=== PATIENT | female | born 1960 | race Caucasian/White ===

== ENCOUNTER 2018-04-15 17:12 | Emergency (ER) | payer OTHER, SELFPAY ==
[2018-04-15 17:13] VITALS: PULSE 81; RESP 18; TEMP 37; O2SAT 99; BMI 29.2
--- NOTE | 2018-04-15 17:15 | NURSING ---
NO OLD EKGS
[2018-04-15 17:29] VITALS: BP 203/105; PULSE 63; RESP 19; O2SAT 99
--- NOTE | 2018-04-15 17:29 | EKG12_ITS ---
Test Reason : CP Blood Pressure : / mmHG Vent. Rate : 082 BPM Atrial Rate : 082 BPM P-R Int : 148 ms QRS Dur : 084 ms QT Int : 388 ms P-R-T Axes : 043 -03 021 degrees QTc Int : 453 ms Normal sinus rhythm with sinus arrhythmia Normal ECG Confirmed by LUKAS SMITH, ELYSIA ([id number]), editor city NAHUM ALLEN ([id number]) on 04/17/2018 9:19:25 AM Referred By: JAMES Confirmed By:ELYSIA GAYTAN MD
[2018-04-15 17:47] LABS: Absolute Lymphocyte Count 2.67 X10^3/ul (0.83-4.51); Absolute Neutrophil Count 4.7 X10^3/uL (2.0-7.7); Basophil# 0.04 X10^3/uL; Basophil% 0.5 % (0-1); Eosinophil# 0.15 X10^3/uL; Eosinophils% 1.8 % (0-5); Hematocrit 44.5 % (37-47); Hemoglobin 14.7 g/dl (12.0-15.0); Lymphocyte # 2.67 X10^3/ul (4.0); Lymphocyte % 32.1 % (19-41); Mean Corpuscular Volume 96.9 fL (81-99); Mean Platelet Vol. 9.6 fl (6.2-12.0); Monocyte# 0.69 X10^3/uL; Monocyte% 8.3 % (0-10); Neutrophil # 4.73 X10^3/uL (2.7-7.7); Neutrophil % 56.9 % (47-70); Platelet Count 296 K/mm3 (150-450); RBC Distribution Width CV 13.2 % (11.6-14.6); RBC Distribution Width SD 45.7 fl (35.1-43.9); Red Blood Count 4.59 M/mm3 (4.2-5.4); White Blood Count 8.3 K/mm3 (4.4-11.0)
--- NOTE | 2018-04-15 17:48 | RAD_ITS ---
STUDY: X-RAY CHEST REASON FOR EXAM: Female, 57 years old. Chest pain. TECHNIQUE: Single AP portable view of the chest. COMPARISON: None. FINDINGS: The lungs are mildly hypoexpanded. There is no focal mass or infiltrate. There is no demonstrated pleural abnormality. Normal size heart. Normal mediastinum and wilman. Normal visualized pulmonary arteries. Normal visualized aortic arch and descending thoracic aorta. There is a levoscoliosis of the thoracic spine. There appears to be anterior fusion lower cervical spine. Normal visualized ribs, clavicles, and shoulders. There is no demonstrated abnormality of the visualized soft tissue structures of the upper abdomen. RAD/Chest 1 View (Portable) IMPRESSION: No acute cardiopulmonary disease. Electronically Signed: Cristobal Carrillo DO at 18:22 EST Tel [phone], Service support ,
[2018-04-15 17:57] LABS: POSITIVE COUNT NO; POSITIVE DIFFERENTIAL NO; POSITIVE MORPHOLOGY NO
[2018-04-15 18:02] LABS: Anion Gap 7 (5-15); BUN 17 mg/dL (7-18); BUN/Creat Ratio 17.5 RATIO (10-20); Chloride 105 mmol/L (98-107); Creatinine, Serum 0.97 mg/dL (0.55-1.02); EST Glomerular Filtration Rate 63 mL/min (>60); Est Glom Filt Rate - Afr Amer 76 mL/min (>60); Estimated Creatinine Clearance 56.59 ml/min; Glucose 96 mg/dL (74-106); Potassium 3.8 mmol/L (3.5-5.1); Sodium Level 138 mmol/L (136-145)
[2018-04-15 18:13] VITALS: PULSE 61; RESP 13; O2SAT 96
[2018-04-15 18:20] LABS: International Normalized Ratio 0.9; Prothrombin Time (Protime)PT. 11.7 SECONDS (11.7-14.9)
[2018-04-15 18:35] VITALS: BP 165/88; PULSE 59; RESP 18; O2SAT 99
[2018-04-15] MEDS: Mag Hydrox/Al Hydrox/Simeth 30 ML UDC PO (18:35)
--- NOTE | 2018-04-15 18:42 | ED.VISSUMM ---
- ER Visit Summary Date of Service: 04/15/18 Chief Complaint: Chest pain History of Present Illness: The patient is a 57 F with no primary care physician. She reports she has chest pain that began approximately 2 months ago. States this is an intermittent pain that seems to be brought on by eating and relieved by antacids. She reports that the episode she is currently experiencing began approximately 7 hours ago. Some intermittent pressure that lasts minutes at a time. States that it is 2 out of 10 currently and 6 out of 10 at worst. She reports is been constant for the past 7 hours today and that is what is different than usual. It was not rate relieved by antacids today. It is relieved by walking. She denies any associated nausea, vomiting, diaphoresis, shortness of breath. Physical Examination: Vitals: Stable. Afebrile. General: Well-nourished and well-developed. Head: Normocephalic atraumatic. Neck: Supple, no lymphadenopathy. No JVD. Nontender. Cardiovascular: Regular rate and rhythm. No murmurs. Respiratory: No respiratory distress. Clear to auscultation bilaterally. Abdominal: Soft, nontender, nondistended, normal bowel sounds. No guarding, rebound, or peritoneal signs. Back: Nontender. Extremities: Nontender, no edema. Skin: Normal color, no rash. Neurologic: Alert and oriented ?3. Cranial nerves II through XII are intact. Normal strength and sensation. Psych: Normal affect. Test Results: EKG is sinus at [address] changes. There is no old EKG for comparison. Troponin is negative despite greater than 7 hours of constant pain. INR 0.9. Chem-7 is normal. CBC is normal. Chest x-ray is normal. Emergency Department Course and Treatment: Patient was given GI cocktail and is gotten significant relief. Her blood pressure has remained elevated while here. She was given lisinopril p.o. Treatment Plan: Patient be discharged on Zantac and lisinopril. Instructed for Dr. Avi Wagoner soon as possible. Return to the emergency department for any worsening symptoms. Disposition: To home in improved and stable condition. Impression: 1. Atypical chest pain. 2. Hypertension. 3. HELADIO score of 0. This note was generated with [employer] software. It may contain incorrect words, spelling, and punctuation that were not noted in review of the chart prior to signing ED Disposition - Plan for ED Patient: Disposition: Home or Assisted Living Chief Complaint: Chest Pain Instructions: ED Chest Pain Atypical Unkn Cause Prescriptions: Lisinopril [Zestril] 10 mg PO DAILY #30 tablet Ranitidine [Zantac] 300 mg PO DAILY #30 tablet Referrals: Avi Wagoner MD [STAFF PHYSICIAN] - As soon as possible
[2018-04-15 19:15] VITALS: BP 162/76; PULSE 80; RESP 18; O2SAT 98
[2018-04-15] MEDS: Famotidine 20 MG Tablet 40 MG PO (19:15)
[2018-04-15] MEDS: Lisinopril 10 MG Tablet PO (19:15)
--- OUTSIDE RECORDS SUMMARY | 2018-06-01 22:31 | XMS RPT_ITS ---
:1960 Author Organization [facility] Care Team Providers Name Role Phone OLDER, ADRY (DAMPER WORKER) Attending Unavailable OLDER, ADRY (DAMPER WORKER) Referring Unavailable OLDER, ADRY (DAMPER WORKER) Referring Unavailable OLDER, ADRY (DAMPER WORKER) Referring Unavailable OLDER, ADRY (DAMPER WORKER) Attending Unavailable OLDER, ADRY (DAMPER WORKER) Referring Unavailable OLDER, ADRY (DAMPER WORKER) Attending Unavailable OLDER, ADRY (DAMPER WORKER) Referring Unavailable SILVA CARBAJAL Attending Unavailable LINDA BELL Referring Unavailable LINDA BELL Referring Unavailable Harvey Truong Attending Unavailable Primay Care Physicia, No Primary Care Unavailable PROBLEMS PROBLEMS DATE TYPE CONDITION / CODE ATTENDING STATUS SOURCE 01/23/2018 Active Hematuria, NA Active [facility] unspecified / [place] R31.9(ICD-10) Repository 01/22/2018 Active Elevated NA Active [facility] blood-pressure [place] reading, without Repository diagnosis of hypertension / R03.0(ICD-10) PROCEDURES PROCEDURES No Procedure Records FoundRESULTS RESULTS CNCO Observed: 05/19/2018 Status: COMPLETED Source: [place] 8:27 AM CLINIC MAIN [facility] REPOSITORY HNO ID: [id number] Author: Mammography Coordinator Service: (none) Author Type: Physician Type: Letter Filed: 05/20/2018 11:31 PM Note Text: May 19, 2018 PID: [id number] Eva Valenzuela [address] [place] [address] Dear Ms. Valenzuela, We are pleased to inform you that the results of your recent breast imaging exam on 05/18/2018 are normal. Early detection of cancer is very important. We also understand recommendations regarding breast cancer screening are controversial. Please discuss with your primary care provider which strategy is best for you and whether a mammogram is right for you. Your imaging studies and report will be kept on file at [facility] as part of your permanent medical record and are available for your continuing care. Thank you for allowing us to help in meeting your health care needs. Sincerely, Dr. Yoon Interpreting Radiologist [facility] (Normal over 40) IRAM SCREENING W ROQUE Observed: 05/18/2018 Status: F Source: [place] 4:09 PM [facility] [place] REPOSITORY * * *Final Report* * * DATE OF EXAM: May 18 2018 4:09PM [id number] - IRAM SCREENING W ROQUE / PROCEDURE REASON: screening mammogram * * * * Physician Interpretation * * * * RESULT: #[id number] - IRAM SCREENING [place] BILATERAL DIGITAL SCREENING MAMMOGRAM TOMOSYNTHESIS WITH CAD: 05/18/2018 HISTORY: Screening Mammogram - patient reports NO breast symptoms /Waiting for [facility] to digitize previous. RESULT: TECHNIQUE: The study was acquired using full field digital technology and interpreted from soft copy. Digital Breast Tomosynthesis (DBT) images were obtained and used to assist in the interpretation of this examination. Current study was also evaluated with a Computer Aided Detection (CAD). Comparison is made to exam dated: 03/07/2011 mammogram - [facility]. There are scattered fibroglandular elements in both breasts. There is a biopsy clip in the left breast. No significant masses, calcifications, or other findings are seen in either breast. There has been no significant interval change. IMPRESSION: There is no mammographic evidence of malignancy. A 1 year screening mammogram is recommended. Shima willams/penrad:05/19/2018 08:27:42 Production Manager(s): Karlie Schulte RT(R)(M), [facility] letter sent: Normal over 40 Mammogram BI-RADS: 1 Negative Multiple national specialty organizations have released breast cancer screening guidelines for women at average risk for developing breast cancer - guidelines that are based on both evidence and opinion, yet differ on when to start and how often to screen for breast cancer. With representation from Breast Imaging, Internal Medicine, Women's Health, Family Medicine, and Medical/Surgical Oncology, the [facility] has carefully reviewed the data and reached the following consensus: 1) All women should engage in shared decision-making with their providers to decide when to start and how often to screen; 2) All women should have the opportunity to start screening mammography at age 40; 3) For women ages 45-55, we recommend annual screening mammograms; 4) For women ages 55 and over, we support both the transition from an annual to a biennial interval if this aligns more with patient's values and preferences, or continuation with annual screening; 5) All women should discuss with their providers when to stop screening mammograms. Video Game Programmer: David Transcribe Date/Time: May 18 2018 3:08P Dictated by: SHIMA YOON MD This examination was interpreted and the report reviewed and electronically signed by: SHIMA YOON MD on May 19 2018 8:27AM EST [id number] Observed: 05/18/2018 Status: COMPLETED Source: [place] 3:28 PM [facility] [place] REPOSITORY HNO ID: [id number] Author: Domonique Steward Service: (none) Author Type: (none) Type: Progress Notes Filed: 05/18/2018 3:29 PM Note Text: Radiology Service Progress Note PATIENT NAME: Eva Valenzuela DATE OF SERVICE: May 18, 2018 TIME: 3:29 PM PATIENT IDENTITY VERIFICATION COMPLETED USING TWO (2) METHODS: Patient confirmed name verbally and Date of . PATIENT GENDER DATA: Female. status: : No status: NO. PATIENT RELEVANT IMPLANT DATA REVIEWED: Not Applicable RADIOLOGY DEPARTMENT: [facility] IV DATA: Not applicable SIGNED BY: Domonique Steward May 18, 2018 3:29 PM PROGRESS Observed: 05/14/2018 Status: COMPLETED Source: [place] 3:15 PM [facility] [place] REPOSITORY HNO ID: [id number] Author: Silva Carbajal Service: (none) Author Type: Physician Type: Progress Notes Filed: 05/15/2018 6:41 PM Note Text: Eva Valenzuela 1960 REFERRING PHYSICIAN: Linda Bell, * CHIEF COMPLAINT: Consult (Consult Colonoscopy) HPI: The patient is a 58 year old female presents for consideration of colonoscopy for screening for colon cancer. Denies previous colonoscopy. Denies colon cancer in family. Denies changes in bowel habits. Denies blood in stools.. Recently quit TOB use PAST MEDICAL HISTORY Diagnosis Date - Dysmenorrhea - Excessive or frequent menstruation Heavy periods - Irregular menstrual cycle Irregular periods Hypertension PAST SURGICAL HISTORY Procedure Laterality Date - ARTHROTOMY,OPEN REPAIR MENISCUS Open knee reconstruction - LAPAROSCOPY, SURGICAL; WITH VAGINAL 2012 LAVH, adenomyosis, fibroids - LIGATE FALLOPIAN TUBE Tubal ligation - NOVASURE 08/06/2010 hysteroscopy/curettage - PAST SURGICAL HISTORY OF disc fusion PAST INJURIES Denies head injuries, denies history of fractures Current Outpatient Prescriptions: lisinopril (ZESTRIL, PRINIVIL) 10 mg tablet Take 10 mg by mouth once daily. Ranitidine HCl (ZANTAC) 300 mg tablet Take 300 mg by mouth daily at bedtime. sod picosulf-mag ox-citric ac (CLENPIQ) 10 mg-3.5 gram -12 gram/160 mL soln Use as instructed. ALLERGIES: Patient has no known allergies. PERSONAL HISTORY: Social History Marital status: Spouse name: Maximus Years of education: Number of children: 2 Occupational History Occupation Employer Comment [employer] Social History Main Topics Smoking status: Former Smoker Packs/day: 0.30 Years: 25.00 Types: Cigarettes Quit date: 05/11/2018 Smokeless tobacco: Never Used Alcohol use: Yes Comment: occasional Drug use: No Sexual activity: Yes Partners with: Male control/protection: Tubal Ligation FAMILY HISTORY Problem Relation Age of Onset - Hypertension Mother - Hypertension Sister REVIEW OF SYSTEMS: General - denies fevers Cardiovascular - denies chest pain, denies history of [place] Pulmonary - denies shortness of breath, denies coughing up blood Gastrointestinal - has acid reflux symptoms, denies abdominal pain, denies blood in stools, denies changes in bowel habits Neurological - denies seizures, denies history of CVA Genitourinary - denies burning with urination, denies blood in urine Hematological - denies spontaneous/prolonged bleeding Skin - denies nonhealing skin wounds Musculoskeletal - denies chronic joint/back pain Endocrine - denies diabetes Psychological ? denies hallucinations PHYSICAL EXAMINATION: General: The patient is 58 year old female, well nourished, well hydrated in no acute distress. The patient is oriented to time, place, and person. VITALS: Blood pressure 158/62, pulse 107, temperature 36.6 ?C (97.9 ?F), temperature source Temporal Artery, height 165.1 cm (5' 5), weight 77.5 kg (170 lb 12.8 oz), last menstrual period 05/25/2011, SpO2 98 %. Body mass index is 28.42 kg/m?. Head ? Normocephalic. EOM intact with sclera clear and no icterus noted. Mouth with mucus membranes moist. Neck - supple with no jugular venous distention noted. Trachea is midline. Lungs ? clear to auscultation. Normal breath sounds. No rales/rhonchi/wheezing noted. No labored breathing noted, such as retractions. No cough heard. Heart ? normal S1 and S2 auscultated. No rubs/clicks/murmurs noted. Regular rate. Abdomen ? soft and benign. Normal bowel sounds. Extremities ? no pitting edema noted Skin ? normal skin integrity. Neurological ? gait normal, no focal deficits noted Psych ? calm and appropriate Assessment IMPRESSION: screening for colon cancer PLAN: I have discussed the above with the patient. I have offered colonoscopy , possible biopsies I have explained the procedure to the patient. I have counseled the patient as to the risks of the procedure, including but not limited to: infection, bleeding, injury to any intraabdominal organs such as liver/spleen, perforation of the GI tract, inability to complete the procedure, complications of anesthesia, etc. ? the patient understands. The patient wishes to proceed. Will plan on moderate IV sedation for colonoscopy in the ambulatory endoscopy clinic. Colon cleansing preparation prescribed and explained to patient. I have answered all questions to the patient?s satisfaction and the patient has no further questions. . Diagnoses: (Z12.11) Screening for colon cancer (primary encounter diagnosis) Return to Clinic: The patient is instructed to follow-up with me after the procedure as per needed. Silva Carbajal MD CNOV Observed: 05/14/2018 Status: COMPLETED Source: [place] 2:20 PM [facility] REPOSITORY Office Visit (GENSWS) EVA VALENZUELA ([id number]) 1960 F Date Time Provider Department 05/14/18 2:20 PM SILVA CARBAJAL During your visit today, we recorded the following information about you: Temperature Pulse Blood pressure Weight 97.9 degrees 107/minute 158/62 77.5 kg Height 1.651 m Silva Carbajal MD 05/14/2018 2:34 PM Signed How to Prepare for Your Colonoscopy Using Golytely, Nulytely, Trilyte or Colyte Preparations with Conscious Sedation IMPORTANT - Read These Instructions at Least 2 Weeks Before your Colonoscopy Dow Instructions: ? Your bowel must be empty so that your doctor can clearly view your colon. Follow all of the instructions in this handout EXACTLY as they are written. If you do NOT follow the directions for when to start drinking the bowel preparation, your colonoscopy WILL be cancelled. ? Do NOT eat any solid food the ENTIRE day before your colonoscopy. ? Buy your bowel preparation at least 5 days before your colonoscopy. ? Do NOT mix the solution until the day before your colonoscopy. Designated Emergency Medicine Medical Director on the Day of Your Exam A responsible family member or friend MUST come with you to your colonoscopy and REMAIN in the endoscopy area until you are discharged. You are NOT ALLOWED to drive, take a taxi or bus, or leave the Endoscopy Center ALONE. If you do not have a responsible minibus driver (family member or friend) with you to take you home, you exam cannot be done with sedation and will be cancelled. Medications Some of the medications you take may need to be stopped or adjusted before your colonoscopy. You MUST call the doctor who ordered any of the following medicines at least 2 weeks before your colonoscopy. ? Blood thinners - such as Coumadin (warfarin), Plavix (clopidogrel), Ticlid (ticlopidine hydrochloride), Agrylin (anagrelide), Xarelto (Rivaroxaban), Pradaxa (Dabigatran), Eliquis (Apixaban), and Effient (Prasugrel). ? Insulin or diabetes pills. Please call the doctor that monitors your glucose levels. Your insulin dosage may need to be adjusted due to the diet restrictions required with this bowel preparation. (Please bring your diabetes medicines with you on the day of your procedure.) If you take aspirin, take it and ALL other medications prescribed by your doctor. On the day of your colonoscopy, take your medications with a sip of water. Five (5) Days Before Your Colonoscopy ? Do NOT take medicines that stop diarrhea - such as Imodium, Kaopectate, or Pepto Bismol. ? Do NOT take fiber supplements - such as Metamucil, Citrucel, or Perdiem. ? Do NOT take products that contain iron - such as multi-vitamins (the label lists what is in the products). ? Do NOT take Vitamin E. Buy the prescription bowel preparation solution at your local pharmacy or drugstore pharmacy. Three (3) Days Before Your Colonoscopy ? Do NOT eat high-fiber foods - such as popcorn, beans, seeds (flax, sunflower, quinoa), multigrain bread, nuts, salad/vegetables, or fresh and dried fruit. One (1) Day Before Your Colonoscopy Only drink clear liquids the ENTIRE DAY before your colonoscopy. Do NOT eat any solid foods. Drink at least 8 ounces of clear liquids every hour after waking up. The clear liquids you can drink include: ? Water, apple, or white grape juice; broth; coffee or tea (without milk or creamer); clear carbonated beverages such as jared alma or lemon-savoonga soda; Gatorade or other sports drinks (not red); Johan-Aid or other flavored drinks (not red). You may eat plain jello or other gelatins (not red) or popsicles (not red). Do NOT drink alcohol on the day before or the day of the procedure. When to Mix and Drink Your Bowel Prep Follow the instructions on the label. After mixing, place the solution in the refrigerator for a couple of hours before drinking. You may add the flavor pack that came with the bowel preparation. Do NOT add ice, sugar or any flavorings to the solution. Morning Appointment (Before 12 noon) Step 1: ? Start drinking the bowel preparation at 6 PM the evening before your colonoscopy. Drink an 8-oz glass of bowel preparation every 10 minutes for a total of 8 glasses. ? You may continue to drink clear liquids until bedtime. Step 2: The day of the colonoscopy (4 hours before your exam). ? Drink an 8-oz glass of bowel preparation every 10 minutes for a total of 8 glasses. ? You may continue to drink clear liquids up to 2 hours before your exam. If you take aspirin, take it and ALL other prescribed medicines with a sip of water on the day of your colonoscopy. Afternoon Appointment (After 12 noon) ? Start drinking the bowel preparation at 6 AM the day of your colonoscopy. Drink an 8-oz glass of bowel preparation every 10 minutes. You must finish drinking the solution by 9 AM. ? You may continue to drink clear liquids up to 2 hours before your exam. If you take aspirin, take it and ALL other prescribed medicines with a sip of water on the day of your colonoscopy. Silva Carbajal MD 05/15/2018 6:41 PM Signed Eva Valenzuela 1960 REFERRING PHYSICIAN: Linda Bell, * CHIEF COMPLAINT: Consult (Consult Colonoscopy) HPI: The patient is a 58 year old female presents for consideration of colonoscopy for screening for colon cancer. Denies previous colonoscopy. Denies colon cancer in family. Denies changes in bowel habits. Denies blood in stools.. Recently quit TOB use PAST MEDICAL HISTORY Diagnosis Date - Dysmenorrhea - Excessive or frequent menstruation Heavy periods - Irregular menstrual cycle Irregular periods Hypertension PAST SURGICAL HISTORY Procedure Laterality Date - ARTHROTOMY,OPEN REPAIR MENISCUS Open knee reconstruction - LAPAROSCOPY, SURGICAL; WITH VAGINAL 2012 LAVH, adenomyosis, fibroids - LIGATE FALLOPIAN TUBE Tubal ligation - NOVASURE 08/06/2010 hysteroscopy/curettage - PAST SURGICAL HISTORY OF disc fusion PAST INJURIES Denies head injuries, denies history of fractures Current Outpatient Prescriptions: lisinopril (ZESTRIL, PRINIVIL) 10 mg tablet Take 10 mg by mouth once daily. Ranitidine HCl (ZANTAC) 300 mg tablet Take 300 mg by mouth daily at bedtime. sod picosulf-mag ox-citric ac (CLENPIQ) 10 mg-3.5 gram -12 gram/160 mL soln Use as instructed. ALLERGIES: Patient has no known allergies. PERSONAL HISTORY: Social History Marital status: Spouse name: Maximus Years of education: Number of children: 2 Occupational History Occupation Employer Comment [employer]* Social History Main Topics Smoking status: Former Smoker Packs/day: 0.30 Years: 25.00 Types: Cigarettes Quit date: 05/11/2018 Smokeless tobacco: Never Used Alcohol use: Yes Comment: occasional Drug use: No Sexual activity: Yes Partners with: Male control/protection: Tubal Ligation FAMILY HISTORY Problem Relation Age of Onset - Hypertension Mother - Hypertension Sister REVIEW OF SYSTEMS: General - denies fevers Cardiovascular - denies chest pain, denies history of [place] Pulmonary - denies shortness of breath, denies coughing up blood Gastrointestinal - has acid reflux symptoms, denies abdominal pain, denies blood in stools, denies changes in bowel habits Neurological - denies seizures, denies history of CVA Genitourinary - denies burning with urination, denies blood in urine Hematological - denies spontaneous/prolonged bleeding Skin - denies nonhealing skin wounds Musculoskeletal - denies chronic joint/back pain Endocrine - denies diabetes Psychological ? denies hallucinations PHYSICAL EXAMINATION: General: The patient is 58 year old female, well nourished, well hydrated in no acute distress. The patient is oriented to time, place, and person. VITALS: Blood pressure 158/62, pulse 107, temperature 36.6 ?C (97.9 ?F), temperature source Temporal Artery, height 165.1 cm (5' 5), weight 77.5 kg (170 lb 12.8 oz), last menstrual period 05/25/2011, SpO2 98 %. Body mass index is 28.42 kg/m?. Head ? Normocephalic. EOM intact with sclera clear and no icterus noted. Mouth with mucus membranes moist. Neck - supple with no jugular venous distention noted. Trachea is midline. Lungs ? clear to auscultation. Normal breath sounds. No rales/rhonchi/wheezing noted. No labored breathing noted, such as retractions. No cough heard. Heart ? normal S1 and S2 auscultated. No rubs/clicks/murmurs noted. Regular rate. Abdomen ? soft and benign. Normal bowel sounds. Extremities ? no pitting edema noted Skin ? normal skin integrity. Neurological ? gait normal, no focal deficits noted Psych ? calm and appropriate Assessment IMPRESSION: screening for colon cancer PLAN: I have discussed the above with the patient. I have offered colonoscopy , possible biopsies I have explained the procedure to the patient. I have counseled the patient as to the risks of the procedure, including but not limited to: infection, bleeding, injury to any intraabdominal organs such as liver/spleen, perforation of the GI tract, inability to complete the procedure, complications of anesthesia, etc. ? the patient understands. The patient wishes to proceed. Will plan on moderate IV sedation for colonoscopy in the ambulatory endoscopy clinic. Colon cleansing preparation prescribed and explained to patient. I have answered all questions to the patient?s satisfaction and the patient has no further questions. . Diagnoses: (Z12.11) Screening for colon cancer (primary encounter diagnosis) Return to Clinic: The patient is instructed to follow-up with me after the procedure as per needed. Silva Carbajal MD Referring Provider: LINDA BELL [[id number]] Allergies As of Date: 05/14/2018 (No Known Allergies) Date Reviewed: 05/14/2018 Reviewed by: Silva Carbajal - Fully Assessed Reason for Visit: Consult [[id number]] Cmt: Consult Colonoscopy Primary Visit Diagnosis:Screening for colon cancer [Z12.11] Order(s):[facility] PT ED DIGESTIVE DISEASES [] Order #: [id number]: 1 sod picosulf-mag ox-citric ac (CLENPIQ) 10 mg-3.5 gram -12 gram/160 mL solnUse as instructed.Disp: 1 BoxRfl: 0 COLONOSCOPY SCRN NOT HIGH RISK [[id number]] Order #: [id number] [facility] PAULO PT ED DIGESTIVE DISEASES [] Order #: [id number]. #:[id number]: 1 Prescriptions as of 05/14/2018 Sig: LISINOPRIL 10 MG TABLET Take 10 mg by mouth once lee* RANITIDINE 300 MG TABLET Take 300 mg by mouth daily at* SOD PICOSULF 10 MG-MAGNES 3.5* Use as instructed. Problem List As Of Date 05/14/2018 Noted Resolved Excessive or frequent menstruation [N92.0] INVALID FOR*07/16/2011 Dysmenorrhea [N94.6] INVALID FOR*07/16/2011 Metrorrhagia [N92.1] INVALID FOR*07/16/2011 Fibroid [D21.9] INVALID FOR*07/16/2011 Elevated blood pressure reading without diagnos*INVALID FOR* Tobacco use [Z72.0] INVALID FOR* Other instructions from your clinician: How to Prepare for Your Colonoscopy Using Golytely, Nulytely, Trilyte or Colyte Preparations with Conscious Sedation IMPORTANT - Read These Instructions at Least 2 Weeks Before your Colonoscopy Dow Instructions: ? Your bowel must be empty so that your doctor can clearly view your colon. Follow all of the instructions in this handout EXACTLY as they are written. If you do NOT follow the directions for when to start drinking the bowel preparation, your colonoscopy WILL be cancelled. ? Do NOT eat any solid food the ENTIRE day before your colonoscopy. ? Buy your bowel preparation at least 5 days before your colonoscopy. ? Do NOT mix the solution until the day before your colonoscopy. Designated Emergency Medicine Medical Director on the Day of Your Exam A responsible family member or friend MUST come with you to your colonoscopy and REMAIN in the endoscopy area until you are discharged. You are NOT ALLOWED to drive, take a taxi or bus, or leave the Endoscopy Center ALONE. If you do not have a responsible minibus driver (family member or friend) with you to take you home, you exam cannot be done with sedation and will be cancelled. Medications Some of the medications you take may need to be stopped or adjusted before your colonoscopy. You MUST call the doctor who ordered any of the following medicines at least 2 weeks before your colonoscopy. ? Blood thinners - such as Coumadin (warfarin), Plavix (clopidogrel), Ticlid (ticlopidine hydrochloride), Agrylin (anagrelide), Xarelto (Rivaroxaban), Pradaxa (Dabigatran), Eliquis (Apixaban), and Effient (Prasugrel). ? Insulin or diabetes pills. Please call the doctor that monitors your glucose levels. Your insulin dosage may need to be adjusted due to the diet restrictions required with this bowel preparation. (Please bring your diabetes medicines with you on the day of your procedure.) If you take aspirin, take it and ALL other medications prescribed by your doctor. On the day of your colonoscopy, take your medications with a sip of water. Five (5) Days Before Your Colonoscopy ? Do NOT take medicines that stop diarrhea - such as Imodium, Kaopectate, or Pepto Bismol. ? Do NOT take fiber supplements - such as Metamucil, Citrucel, or Perdiem. ? Do NOT take products that contain iron - such as multi- vitamins (the label lists what is in the products). ? Do NOT take Vitamin E. Buy the prescription bowel preparation solution at your local pharmacy or [facility]. Three (3) Days Before Your Colonoscopy ? Do NOT eat high-fiber foods - such as popcorn, beans, seeds (flax, sunflower, quinoa), multigrain bread, nuts, salad/vegetables, or fresh and dried fruit. One (1) Day Before Your Colonoscopy Only drink clear liquids the ENTIRE DAY before your colonoscopy. Do NOT eat any solid foods. Drink at least 8 ounces of clear liquids every hour after waking up. The clear liquids you can drink include: ? Water, apple, or white grape juice; broth; coffee or tea (without milk or creamer); clear carbonated beverages such as jared alma or lemon-savoonga soda; Gatorade or other sports drinks (not red); Johan- Aid or other flavored drinks (not red). You may eat plain jello or other gelatins (not red) or popsicles (not red). Do NOT drink alcohol on the day before or the day of the procedure. When to Mix and Drink Your Bowel Prep Follow the instructions on the label. After mixing, place the solution in the refrigerator for a couple of hours before drinking. You may add the flavor pack that came with the bowel preparation. Do NOT add ice, sugar or any flavorings to the solution. Morning Appointment (Before 12 noon) Step 1: ? Start drinking the bowel preparation at 6 PM the evening before your colonoscopy. Drink an 8-oz glass of bowel preparation every 10 minutes for a total of 8 glasses. ? You may continue to drink clear liquids until bedtime. Step 2: The day of the colonoscopy (4 hours before your exam). ? Drink an 8-oz glass of bowel preparation every 10 minutes for a total of 8 glasses. ? You may continue to drink clear liquids up to 2 hours before your exam. If you take aspirin, take it and ALL other prescribed medicines with a sip of water on the day of your colonoscopy. Afternoon Appointment (After 12 noon) ? Start drinking the bowel preparation at 6 AM the day of your colonoscopy. Drink an 8-oz glass of bowel preparation every 10 minutes. You must finish drinking the solution by 9 AM. ? You may continue to drink clear liquids up to 2 hours before your exam. If you take aspirin, take it and ALL other prescribed medicines with a sip of water on the day of your colonoscopy. Prescriptions ordered this encounter Disp Refills Start End SOD PICOSULF 10 MG-MAGNES 3.5 GRAM-C* 1 Box 0 05/14/2018 Sig: Use as instructed. Letter Text Encounter Status:Closed by MD SILVA CARBAJAL on 05/15/18 KIMBERLYN Observed: 05/08/2018 Status: COMPLETED Source: [place] 12:00 AM [facility] REPOSITORY Telephone ([email or web address]) EVA VALENZUELA ([id number]) 1960 F Date Time Provider Department 05/08/18 RIK LÓPEZ Dasher During your visit today, we recorded the following information about you: Ashlyn Díaz 05/08/2018 4:00 PM Signed 1st attempt to reach patient to schedule colon consult.Ashlyn Prado Psr Aaliyah Almanza 05/13/2018 10:27 AM Signed Scheduled patient for colonoscopy consultation with dr. Carbajal on 05/14/2018 Aaliyah Almanza Allergies As of Date: 05/08/2018 (No Known Allergies) Date Reviewed: 03/05/2018 Reviewed by: Patience Roldan LPN - Fully Assessed Reason for Visit: LMTCB [1226] Problem List As Of Date 05/08/2018 Noted Resolved Excessive or frequent menstruation [N92.0] INVALID FOR*07/16/2011 Dysmenorrhea [N94.6] INVALID FOR*07/16/2011 Metrorrhagia [N92.1] INVALID FOR*07/16/2011 Fibroid [D21.9] INVALID FOR*07/16/2011 Elevated blood pressure reading without diagnos*INVALID FOR* Tobacco use [Z72.0] INVALID FOR* Encounter Status:Closed by ASHLYN MOYER on 05/08/18 12 LEAD ELECTROCARDIOGRAM Observed: 04/17/2018 Status: F Source: [place] 9:20 AM [facility] Cardiovascular Services [address] [place] [address] 12 Lead EKG 04/15/18 1718 MR#: [id number] Acct: [id number] Name: EVA VALENZUELA YISEL Rep #: [id number] : 1960 57 From: Micky Connors MD Attending Dr: Status: DEP ER Ordering Dr: Provider,Ed P. Date: 04/15/18 Location: ED Sex: F C Admitted: Test Reason : CP Blood Pressure : / mmHG Vent. Rate : 082 BPM Atrial Rate : 082 BPM P-R Int : 148 ms QRS Dur : 084 ms QT Int : 388 ms P-R-T Axes : 043 -03 021 degrees QTc Int : 453 ms Normal sinus rhythm with sinus arrhythmia Normal ECG Confirmed by LUKAS SMITH, MICKY ([id number]), brands editor NAHUM ALLEN ([id number]) on 04/17/2018 9:19:25 AM Referred By: JAMES Confirmed By:MICKY CONNORS MD 04/17/18918 Date Micky Connors MD CC: No Primary Care Physician; ED PHYSICIAN PROVIDER; Harvey Truong MD Signed EMERGENCY DEPARTMENT Observed: 04/16/2018 Status: F Source: [place] SUMMARY 1:05 AM [facility] Medical Records Department [address] [place] [address] Emergency Department Summary 04/15/18 1842 MR#: [id number] Acct: [id number] Name: BIANCAEVA YISEL Rep #: [id number] : 1960 57 From: Harvey Truong MD PCP: Care Physician, No Primary Status: DEP ER - ER Visit Summary Date of Service: 04/15/18 Chief Complaint: Chest pain History of Present Illness: The patient is a 57 F with no primary care physician. She reports she has chest pain that began approximately 2 months ago. States this is an intermittent pain that seems to be brought on by eating and relieved by antacids. She reports that the episode she is currently experiencing began approximately 7 hours ago. Some intermittent pressure that lasts minutes at a time. States that it is 2 out of 10 currently and 6 out of 10 at worst. She reports is been constant for the past 7 hours today and that is what is different than usual. It was not rate relieved by antacids today. It is relieved by walking. She denies any associated nausea, vomiting, diaphoresis, shortness of breath. Physical Examination: Vitals: Stable. Afebrile. General: Well-nourished and well-developed. Head: Normocephalic atraumatic. Neck: Supple, no lymphadenopathy. No JVD. Nontender. Cardiovascular: Regular rate and rhythm. No murmurs. Respiratory: No respiratory distress. Clear to auscultation bilaterally. Abdominal: Soft, nontender, nondistended, normal bowel sounds. No guarding, rebound, or peritoneal signs. Back: Nontender. Extremities: Nontender, no edema. Skin: Normal color, no rash. Neurologic: Alert and oriented 3. Cranial nerves II through XII are intact. Normal strength and sensation. Psych: Normal affect. Test Results: EKG is sinus at [address] changes. There is no old EKG for comparison. Troponin is negative despite greater than 7 hours of constant pain. INR 0.9. Chem-7 is normal. CBC is normal. Chest x-ray is normal. Emergency Department Course and Treatment: Patient was given GI cocktail and is gotten significant relief. Her blood pressure has remained elevated while here. She was given lisinopril p.o. Treatment Plan: Patient be discharged on Zantac and lisinopril. Instructed for Dr. Avi Allen soon as possible. Return to the emergency department for any worsening symptoms. Disposition: To home in improved and stable condition. Impression: 1. Atypical chest pain. 2. Hypertension. 3. HELADIO score of 0. This note was generated with Superprotonication software. It may contain incorrect words, spelling, and punctuation that were not noted in review of the chart prior to signing ED Disposition - Plan for ED Patient: Disposition: Home or Assisted Living Chief Complaint: Chest Pain Instructions: ED Chest Pain Atypical Unkn Cause Prescriptions: Lisinopril [Zestril] 10 mg PO DAILY #30 tablet Ranitidine [Zantac] 300 mg PO DAILY #30 tablet Referrals: Avi Allen MD [STAFF PHYSICIAN] - As soon as possible What to do if you have Problems For any increased pain, shortness of breath, bleeding, nausea or vomiting, chest pain, or any unexpected problems, contact your Primary Care Provider. Call [facility] ([phone]) or report to the closest Emergency Room. Call 911 if necessary. 04/16/18 0105 <Electronically signed by Harvey Truong MD> Date Harvey Truong MD Cosigner Signature (If Indicated): Date CC: No Primary Care Physician CHEST 1 VIEW Observed: 04/15/2018 Status: F Source: [place] (PORTABLE) 5:29 PM [facility] REPOSITORY [facility] Imaging Services [address] [place] [id number] Chest 1 View (Portable) MR#: [id number] Acct: [id number] Name: EVA VALENZUELA YISEL Rep #: [id number] : 1960 F 57 From: Cristobal Carrillo DO PCP: Care Physician, No Primary Status: REG ER Study: Chest 1 View (Portable) Date of Exam: 04/15/18 Exam# [id number] Ordering Dr: Veronica,Jairo Gaxiola STUDY: X-RAY CHEST REASON FOR EXAM: Female, 57 years old. Chest pain. TECHNIQUE: Single AP portable view of the chest. COMPARISON: None. FINDINGS: The lungs are mildly hypoexpanded. There is no focal mass or infiltrate. There is no demonstrated pleural abnormality. Normal size heart. Normal mediastinum and wilman. Normal visualized pulmonary arteries. Normal visualized aortic arch and descending thoracic aorta. There is a levoscoliosis of the thoracic spine. There appears to be anterior fusion lower cervical spine. Normal visualized ribs, clavicles, and shoulders. There is no demonstrated abnormality of the visualized soft tissue structures of the upper abdomen. RAD/Chest 1 View (Portable) IMPRESSION: No acute cardiopulmonary disease. Electronically Signed: Cristobal Carrillo DO at 18:22 EST Tel [phone], Service support , CC: No Primary Care Physician; ED PHYSICIAN PROVIDER Video Game Programmer: Signed CBC W/DIFF, AUTOMATED Collected: 04/15/2018 Status: F Source: [place] 5:22 PM [facility] REPOSITORY TYPE CODE TESTS RESULT OUT OF RANGE REFERENCE UNITS LAB L100.1000 4.4-11.0 K/mm3 Normal WBC 8.3 LAB L100.1200 4.2-5.4 M/mm3 Normal RBC 4.59 LAB L100.1300 12.0-15.0 g/dl Normal HGB 14.7 LAB L100.1400 37-47 % Normal HCT 44.5 LAB L100.1500 81-99 fL Normal MCV 96.9 LAB L100.1600 27.0-32.0 pg Normal MCH 32.0 LAB L100.1700 32-36 g/gl Normal MCHC 33.0 LAB L100.1810 11.6-14.6 % Normal RDW CV 13.2 LAB L100.1820 35.1-43.9 fl High RDW SD 45.7 LAB L100.1900 150-450 K/mm3 Normal PLT 296 LAB L100.2000 6.2-12.0 fl Normal MPV 9.6 LAB L100.2100 47-70 % Normal NEUT% 56.9 LAB L100.2200 19-41 % Normal LY% 32.1 LAB L100.2300 0-10 % Normal MONO% 8.3 LAB L100.2400 0-5 % Normal EO% 1.8 LAB L100.2500 0-1 % Normal BASO% 0.5 LAB L100.2550 0.0-0.9 % Normal IM GRAN % 0.400 Result Comment: IG% - Immature Granulocytes (promyelocytes, myelocytes and metamyelocytes) > 1% indicates that a LEFT SHIFT is Present. LAB L100.2620 2.0-7.7 X10 3/uL Normal Absolute Neut 4.7 LAB L100.2720 0.83-4.51 X10 3/ul Normal Absolute Lymph 2.67 Performed By: #### L100.0100 #### [facility] [address] [place], [place], [address] BASIC METABOLIC Collected: 04/15/2018 Status: F Source: [place] PROFILE (BMP) 5:22 PM [facility] REPOSITORY TYPE CODE TESTS RESULT OUT OF RANGE REFERENCE UNITS LAB L501.0100 74-106 mg/dL Normal GLU 96 Result Comment: Please note revised GLUCOSE reference range effective 2017. LAB L501.1000 7-18 mg/dL Normal BUN 17 LAB L501.1100 0.55-1.02 mg/dL Normal CREAT,SERUM 0.97 Result Comment: The validity of the calculated GFR AND GFRAA in patients over 70 years has not been determined. Clinical correlation is essential. LAB L501.1110 >60 mL/min Normal EST GFR 63 Result Comment: Non- GFR Calc LAB L501.1115 >60 mL/min Normal EST GFR - AA 76 Result Comment: GFR Calc LAB L501.1255 ml/min Normal Estimated CRCL 56.59 LAB L501.1300 10-20 RATIO Normal BUN/CRE 17.5 LAB L501.2200 8.5-10 mg/dL Normal .1 CA 10.0 LAB L501.5300 136-14 mmol/L Normal 5 NA 138 LAB L501.5600 3.5-5. mmol/L Normal 1 K 3.8 LAB L501.5900 98-107 mmol/L Normal CL 105 LAB L501.6100 21.0-3 mmol/L Normal 2.0 CO2 26.0 LAB L501.6200 5-15 Normal GAP 7 Performed By: #### L500.2500, L501.4010 #### [facility] [address] [place], [address] TROPONIN-I Collected: 04/15/2018 Status: F Source: [place] 5:22 PM [facility] REPOSITORY TYPE CODE TESTS RESULT OUT OF RANGE REFERENCE UNITS LAB L501.4010 <0.045 ng/mL Normal < 0.015 TROPONIN-I Result Comment: TROPONIN-I EXPECTED VALUES <0.045 Negative 0.045 - 0.590 Consistent with Cardiac Damage > OR = 0.600 Critical Value Not every elevated troponin is indicative of [place]. These values should be used with clinical judgement in examining the patient's clinical picture for diagnosis. To establish a diagnosis of [place] versus myocardial injury, there must be a demonstrated rise and/or fall in the troponin values, in addition to ischemic symptoms, EKG changes, new regional wall motion abnormality, and/or angiographical evidence. PLEASE NOTE: REFERENCE RANGES EDITED 17 Performed By: #### L500.2500, L501.4010 #### [facility] [address] [place], [address] PROTHROMBIN TIME W/INR Collected: 04/15/2018 Status: F Source: [place] 5:22 PM [facility] REPOSITORY TYPE CODE TESTS RESULT OUT OF RANGE REFERENCE UNITS LAB L300.4150 11.7-14.9 SECONDS Normal PROTIME 11.7 LAB L300.4200 Normal INR 0.9 Performed By: #### L300.3900 #### [facility] [address] [place], [address] PROGRESS Observed: 03/05/2018 Status: COMPLETED Source: [place] 7:50 AM [facility] REPOSITORY HNO ID: [id number] Author: Adry (Kimberly) Older Service: (none) Author Type: Nurse Practitioner Type: Progress Notes Filed: 03/05/2018 7:53 AM Note Text: CC Patient presents with: F/U 1 month HPI Eva Valenzuela is a 57 year old female who presents to the office for blood pressure. Her visit today is for follow-up. Patient was last seen for this approximately 1 month ago. No diagnosis of hypertension, initially seen because her BP was elevated at dentist office. Was unable to tolerate BP medication. Has cut back significantly on her caffeine intake and smoking. Home BP's: does check BP's away from this office with average BP's in the 130's over 70's range. Symptoms referable to elevated blood pressure (headache, chest pain, palpitations, dyspnea, peripheral edema, fatigue, blurred vision): No Last 4 Encounter BP Readings: Date: BP: 03/05/2018 136/78 02/05/2018 145/80 01/22/2018 178/80 10/16/2011 116/84 REVIEW OF SYSTEMS See HPI PAST MEDICAL HISTORY Diagnosis Date - Dysmenorrhea - Excessive or frequent menstruation Heavy periods - Irregular menstrual cycle Irregular periods PAST SURGICAL HISTORY Procedure Laterality Date - ARTHROTOMY,OPEN REPAIR MENISCUS Open knee reconstruction - LAPAROSCOPY, SURGICAL; WITH VAGINAL 2012 LAVH, adenomyosis, fibroids - LIGATE FALLOPIAN TUBE Tubal ligation - NOVASURE 08/06/2010 hysteroscopy/curettage - PAST SURGICAL HISTORY OF disc fusion ALLERGIES Patient has no known allergies. MEDICATIONS No prescriptions on file. FAMILY HISTORY Problem Relation Age of Onset - Hypertension Mother - Hypertension Sister Social History Substance Use Topics - Smoking status: Current Every Day Smoker Packs/day: 0.30 Years: 25.00 Types: Cigarettes - Smokeless tobacco: Never Used - Alcohol use Yes Comment: occasional PHYSICAL EXAM BP 136/78 (BP Site: Left Arm, BP Position: Sitting, BP Cuff Size: Regular Adult) Pulse 84 Resp 16 Wt 76.7 kg (169 lb) LMP 05/25/2011 BMI 28.12 kg/m? General Appearance: well appearing, in no acute distress, alert Lungs: Lungs clear to auscultation. No wheezing, rhonchi, rales Heart: RRR without murmur, gallop, or rubs. No ectopy ASSESSMENT/PLAN: 1. Elevated blood pressure reading without diagnosis of hypertension - ICD9: 796.2, ICD10: R03.0 Likely PreHypertension - Encouraged dietary sodium restriction/DASH diet - Recommended regular aerobic exercise. - Recommend home blood pressure monitoring, to bring results in on next visit - Patient advised to establish care with PCP. She plans on scheduling with [facility] internal medicine group. Prescription instructions reviewed with patient as applicable. Potential red flag symptoms discussed with the patient. Reviewed appropriate action plan to take if red flag symptoms occur. Patient agreeable to treatment plan Adry Mathew APRN.CNP CNOV Observed: 03/05/2018 Status: COMPLETED Source: [place] 7:40 AM [facility] REPOSITORY Office Visit (INTMWS) EVA VALENZUELA ([id number]) 1960 F Date Time Provider Department 03/05/18 7:40 AM ADRY MATHEW (KIMBERLY) INTMWS During your visit today, we recorded the following information about you: Pulse Respiration Blood pressure Weight 84/minute 16/minute 136/78 76.7 kg Adry Mathew APRN.CNP 03/05/2018 7:53 AM Signed CC Patient presents with: F/U 1 month HPI Eva Valenzuela is a 57 year old female who presents to the office for blood pressure. Her visit today is for follow-up. Patient was last seen for this approximately 1 month ago. No diagnosis of hypertension, initially seen because her BP was elevated at dentist office. Was unable to tolerate BP medication. Has cut back significantly on her caffeine intake and smoking. Home BP's: does check BP's away from this office with average BP's in the 130's over 70's range. Symptoms referable to elevated blood pressure (headache, chest pain, palpitations, dyspnea, peripheral edema, fatigue, blurred vision): No Last 4 Encounter BP Readings: Date: BP: 03/05/2018 136/78 02/05/2018 145/80 01/22/2018 178/80 10/16/2011 116/84 REVIEW OF SYSTEMS See HPI PAST MEDICAL HISTORY Diagnosis Date - Dysmenorrhea - Excessive or frequent menstruation Heavy periods - Irregular menstrual cycle Irregular periods PAST SURGICAL HISTORY Procedure Laterality Date - ARTHROTOMY,OPEN REPAIR MENISCUS Open knee reconstruction - LAPAROSCOPY, SURGICAL; WITH VAGINAL 2012 LAVH, adenomyosis, fibroids - LIGATE FALLOPIAN TUBE Tubal ligation - NOVASURE 08/06/2010 hysteroscopy/curettage - PAST SURGICAL HISTORY OF disc fusion ALLERGIES Patient has no known allergies. MEDICATIONS No prescriptions on file. FAMILY HISTORY Problem Relation Age of Onset - Hypertension Mother - Hypertension Sister Social History Substance Use Topics - Smoking status: Current Every Day Smoker Packs/day: 0.30 Years: 25.00 Types: Cigarettes - Smokeless tobacco: Never Used - Alcohol use Yes Comment: occasional PHYSICAL EXAM BP 136/78 (BP Site: Left Arm, BP Position: Sitting, BP Cuff Size: Regular Adult) Pulse 84 Resp 16 Wt 76.7 kg (169 lb) LMP 05/25/2011 BMI 28.12 kg/m? General Appearance: well appearing, in no acute distress, alert Lungs: Lungs clear to auscultation. No wheezing, rhonchi, rales Heart: RRR without murmur, gallop, or rubs. No ectopy ASSESSMENT/PLAN: 1. Elevated blood pressure reading without diagnosis of hypertension - ICD9: 796.2, ICD10: R03.0 Likely PreHypertension - Encouraged dietary sodium restriction/DASH diet - Recommended regular aerobic exercise. - Recommend home blood pressure monitoring, to bring results in on next visit - Patient advised to establish care with PCP. She plans on scheduling with [facility] internal medicine group. Prescription instructions reviewed with patient as applicable. Potential red flag symptoms discussed with the patient. Reviewed appropriate action plan to take if red flag symptoms occur. Patient agreeable to treatment plan Adry Mathew APRN.KIMBERLY Referring Provider: ADRY MATHEW ([facility]) [[id number]] Allergies As of Date: 03/05/2018 (No Known Allergies) Date Reviewed: 03/05/2018 Reviewed by: Patience Roldan LPN - Fully Assessed Reason for Visit: F/U 1 month [1175] Primary Visit Diagnosis:Elevated blood pressure reading without diagnosis of hypertension [R03.0] Problem List As Of Date 03/05/2018 Noted Resolved Excessive or frequent menstruation [N92.0] INVALID FOR*07/16/2011 Dysmenorrhea [N94.6] INVALID FOR*07/16/2011 Metrorrhagia [N92.1] INVALID FOR*07/16/2011 Fibroid [D21.9] INVALID FOR*07/16/2011 Elevated blood pressure reading without diagnos*INVALID FOR* Tobacco use [Z72.0] INVALID FOR* Encounter Status:Closed by ADRY MATHEW CNP on 03/05/18 URINALYSIS WITH Collected: 02/05/2018 Status: F Source: [facility] 8:18 AM [facility] REPOSITORY TYPE CODE TESTS RESULT OUT OF RANGE REFERENCE UNITS LAB UCOL Yellow Color Yellow LAB [facility] Clear Clarity Clear LAB UGLUC Negative mg/dL Glucose, Urine Negative LAB UBIL Negative Bilirubin, Urine Negative LAB UKET Negative Ketones, Urine Negative LAB USPG 1.005-1.030 Specific Coleman, Ur 1.009 LAB UHGB Negative Abnormal Hemoglobin/Blood, 1+ Alert Ur LAB UPH 4.5-8.0 pH 6.0 LAB UPROT Negative mg/dL Protein, Urine Negative LAB UUROB Normal Urobilinogen Normal LAB UNITR Negative Nitrites Negative LAB ULKEST Negative Leukest Abnormal 1+ Alert LAB UCOM Comments SEE COMMENT Result Comment: N/A LAB UMCOM Urine SEE Amado Comment COMMENT Result Comment: N/A LAB UWBC 0-5 /HPF WBC 0-5 LAB URBC 0-3 /HPF RBC 0-3 LAB UEPI /HPF Epithelial SEE Cells COMMENT Result Comment: Few Squamous Epithelial Cells Few Non-Squamous Epithelial Cells Performed By: #### UAWMIC #### [facility] [address] [address] PROGRESS Observed: 02/05/2018 Status: COMPLETED Source: [place] 7:48 AM [facility] REPOSITORY HNO ID: [id number] Author: Adry Mathew Service: (none) Author Type: Nurse Practitioner Type: Progress Notes Filed: 02/05/2018 8:14 AM Note Text: CC Patient presents with: Follow Up: BP HPI Eva Valenzuela is a 57 year old female who presents to the office for blood pressure. Her visit today is for follow-up. Patient was last seen for this approximately 2 weeks ago. No history of hypertension, BP was elevated at dentist office. Home BP's: does not check BP's Symptoms referable to elevated blood pressure (headache, chest pain, palpitations, dyspnea, peripheral edema, fatigue, blurred vision): No Last 4 Encounter BP Readings: Date: BP: 02/05/2018 145/80 01/22/2018 178/80 10/16/2011 116/84 08/16/2011 112/60 Patient had urinalysis that was positive for microscopic hematuria. Asymptomatic. Denies dysuria, urgency, frequency, hesitancy, flank pain, nausea. Denies history of kidney stones. Smokes 1/2 PPD. REVIEW OF SYSTEMS See HPI PAST MEDICAL HISTORY Diagnosis Date - Dysmenorrhea - Excessive or frequent menstruation Heavy periods - Irregular menstrual cycle Irregular periods PAST SURGICAL HISTORY Procedure Laterality Date - ARTHROTOMY,OPEN REPAIR MENISCUS Open knee reconstruction - LAPAROSCOPY, SURGICAL; WITH VAGINAL 2012 LAVH, adenomyosis, fibroids - LIGATE FALLOPIAN TUBE Tubal ligation - NOVASURE 08/06/2010 hysteroscopy/curettage - PAST SURGICAL HISTORY OF disc fusion ALLERGIES Patient has no known allergies. MEDICATIONS No prescriptions on file. FAMILY HISTORY Problem Relation Age of Onset - Hypertension Mother - Hypertension Sister Social History Substance Use Topics - Smoking status: Current Every Day Smoker Packs/day: 0.50 Years: 25.00 Types: Cigarettes - Smokeless tobacco: Never Used - Alcohol use Yes Comment: occasional PHYSICAL EXAM BP 145/80 Pulse 91 Temp 36.5 ?C (97.7 ?F) (Temporal Artery) Resp 14 Wt 76.2 kg (168 lb) LMP 05/25/2011 SpO2 97% BMI 27.96 kg/m? General Appearance: well appearing, in no acute distress, alert Lungs: Lungs clear to auscultation. No wheezing, rhonchi, rales Heart: RRR without murmur, gallop, or rubs. No ectopy ASSESSMENT/PLAN: 1. Elevated blood pressure reading without diagnosis of hypertension - ICD9: 796.2, ICD10: R03.0 (primary diagnosis) Likely PreHypertension - Encouraged dietary sodium restriction/DASH diet - Recommended regular aerobic exercise. - Recommend home blood pressure monitoring, to bring results in on next visit - Discussed need and benefit for weight loss and smoking cessation - Recheck in 1 month, sooner if needed. - Reviewed risks of HTN and principles of treatment 2. Asymptomatic microscopic hematuria - ICD9: 599.72, ICD10: R31.21 Urine culture negative. Labs unremarkable. Patient risk factors include smoking history and age - Repeat URINALYSIS WITH MICROSCOPIC today. If hematuria persists will refer to urology Prescription instructions reviewed with patient as applicable. Potential red flag symptoms discussed with the patient. Reviewed appropriate action plan to take if red flag symptoms occur. Patient agreeable to treatment plan Adry Mathew APRN.DAMPER WORKER CNOV Observed: 02/05/2018 Status: COMPLETED Source: [place] 7:40 AM [facility] REPOSITORY Office Visit (INTMWS) EVA VALENZUELA ([id number]) 1960 F Date Time Provider Department 02/05/18 7:40 AM OLDER ADRY (KIMBERLY) INTMWS During your visit today, we recorded the following information about you: Temperature Pulse Respiration Blood pressure 97.7 degrees 91/minute 14/minute 145/80 Weight 76.2 kg Adry Mathew APRN.CNP 02/05/2018 8:14 AM Signed CC Patient presents with: Follow Up: BP HPI Eva Valenzuela is a 57 year old female who presents to the office for blood pressure. Her visit today is for follow-up. Patient was last seen for this approximately 2 weeks ago. No history of hypertension, BP was elevated at dentist office. Home BP's: does not check BP's Symptoms referable to elevated blood pressure (headache, chest pain, palpitations, dyspnea, peripheral edema, fatigue, blurred vision): No Last 4 Encounter BP Readings: Date: BP: 02/05/2018 145/80 01/22/2018 178/80 10/16/2011 116/84 08/16/2011 112/60 Patient had urinalysis that was positive for microscopic hematuria. Asymptomatic. Denies dysuria, urgency, frequency, hesitancy, flank pain, nausea. Denies history of kidney stones. Smokes 1/2 PPD. REVIEW OF SYSTEMS See HPI PAST MEDICAL HISTORY Diagnosis Date - Dysmenorrhea - Excessive or frequent menstruation Heavy periods - Irregular menstrual cycle Irregular periods PAST SURGICAL HISTORY Procedure Laterality Date - ARTHROTOMY,OPEN REPAIR MENISCUS Open knee reconstruction - LAPAROSCOPY, SURGICAL; WITH VAGINAL 2012 LAVH, adenomyosis, fibroids - LIGATE FALLOPIAN TUBE Tubal ligation - NOVASURE 08/06/2010 hysteroscopy/curettage - PAST SURGICAL HISTORY OF disc fusion ALLERGIES Patient has no known allergies. MEDICATIONS No prescriptions on file. FAMILY HISTORY Problem Relation Age of Onset - Hypertension Mother - Hypertension Sister Social History Substance Use Topics - Smoking status: Current Every Day Smoker Packs/day: 0.50 Years: 25.00 Types: Cigarettes - Smokeless tobacco: Never Used - Alcohol use Yes Comment: occasional PHYSICAL EXAM BP 145/80 Pulse 91 Temp 36.5 ?C (97.7 ?F) (Temporal Artery) Resp 14 Wt 76.2 kg (168 lb) LMP 05/25/2011 SpO2 97% BMI 27.96 kg/m? General Appearance: well appearing, in no acute distress, alert Lungs: Lungs clear to auscultation. No wheezing, rhonchi, rales Heart: RRR without murmur, gallop, or rubs. No ectopy ASSESSMENT/PLAN: 1. Elevated blood pressure reading without diagnosis of hypertension - ICD9: 796.2, ICD10: R03.0 (primary diagnosis) Likely PreHypertension - Encouraged dietary sodium restriction/DASH diet - Recommended regular aerobic exercise. - Recommend home blood pressure monitoring, to bring results in on next visit - Discussed need and benefit for weight loss and smoking cessation - Recheck in 1 month, sooner if needed. - Reviewed risks of HTN and principles of treatment 2. Asymptomatic microscopic hematuria - ICD9: 599.72, ICD10: R31.21 Urine culture negative. Labs unremarkable. Patient risk factors include smoking history and age - Repeat URINALYSIS WITH MICROSCOPIC today. If hematuria persists will refer to urology Prescription instructions reviewed with patient as applicable. Potential red flag symptoms discussed with the patient. Reviewed appropriate action plan to take if red flag symptoms occur. Patient agreeable to treatment plan Adry Mathew APRN.CNP Referring Provider: ADRY MATHEW ([facility]) [[id number]] Allergies As of Date: 02/05/2018 (No Known Allergies) Date Reviewed: 02/05/2018 Reviewed by: Alba Curry Theatrical Agent - Fully Assessed Reason for Visit: Recheck [92] Cmt: BP Reason For Visit History Recorded Primary Visit Diagnosis:Elevated blood pressure reading without diagnosis of hypertension [R03.0] Other Visit Diagnosis:Asymptomatic microscopic hematuria [R31.21] Order(s):URINALYSIS WITH MICROSCOPIC [SQUAWMIC] Order #: [id number] Problem List As Of Date 02/05/2018 Noted Resolved Excessive or frequent menstruation [N92.0] INVALID FOR*07/16/2011 Dysmenorrhea [N94.6] INVALID FOR*07/16/2011 Metrorrhagia [N92.1] INVALID FOR*07/16/2011 Fibroid [D21.9] INVALID FOR*07/16/2011 Elevated blood pressure reading without diagnos*INVALID FOR* Tobacco use [Z72.0] INVALID FOR* Encounter Status:Closed by ADRY MATHEW DAMPER WORKER on 02/05/18 Observed: 01/23/2018 Status: F Source: [place] URINE CULTURE 10:14 AM [facility] REPOSITORY Sp. Request/Comment: - Specimen received in preservative Culture Result - 10,000 - <50,000 CFU/ml Normal urogenital jesus Performed By: #### URCUL #### [facility] [address], [place] [address] URINALYSIS WITH Collected: 01/22/2018 Status: F Source: [place] MICROSCOPIC 8:37 AM [facility] REPOSITORY TYPE CODE TESTS RESULT OUT OF RANGE REFERENCE UNITS LAB UCOL Yellow Color Yellow LAB [facility] Clear Clarity Clear LAB UGLUC Negative mg/dL Glucose, Urine Negative LAB UBIL Negative Bilirubin, Urine Negative LAB UKET Negative Ketones, Urine Negative LAB USPG 1.005-1.030 Specific Coleman, Ur 1.013 LAB UHGB Negative Abnormal Hemoglobin/Blood, 2+ Alert Ur LAB UPH 4.5-8.0 pH 6.0 LAB UPROT Negative mg/dL Protein, Urine Negative LAB UUROB Normal Urobilinogen Normal LAB UNITR Negative Nitrites Negative LAB ULKEST Negative Leukest Abnormal 3+ Alert LAB UCOM Comments SEE COMMENT Result Comment: N/A LAB UMCOM Urine SEE Amado Comment COMMENT Result Comment: Result rechecked. LAB UWBC 0-5 /HPF Abnormal WBC Alert 6-10 LAB URBC 0-3 /HPF Abnormal RBC Alert 3-5 LAB UEPI /HPF Epithelial Cells SEE COMMENT Result Comment: Few Squamous Epithelial Cells Performed By: #### UAWMIC #### [facility] [address], [place] [address] CBC AND DIFFERENTIAL Collected: 01/22/2018 Status: F Source: [place] 8:34 AM [facility] REPOSITORY TYPE CODE TESTS RESULT OUT OF REFERENCE UNITS RANGE LAB WBC 3.70-11.00 k/uL WBC 7.10 LAB RBC 3.90-5.20 m/uL RBC 4.78 LAB HGB 11.5-15.5 g/dL Hemoglobin 14.9 LAB HCT 36.0-46.0 % High Hematocrit 48.0 LAB MCV 80.0-100.0 fL MCV High 100.4 LAB MCH 26.0-34.0 pG MCH 31.2 LAB MCHC 30.5-36.0 g/dL MCHC 31.0 LAB RDWCV 11.5-15.0 % RDW-CV 13.2 LAB PLTCT 150-400 k/uL Platelet Count 322 LAB MPV 9.0-12.7 fL MPV 9.9 LAB ANEUT % Neut% 63.8 LAB AANEUT 1.45-7.50 k/uL Abs Neut 4.53 LAB ALYMP % Lymph% 24.4 LAB AALYMP 1.00-4.00 k/uL Abs Lymph 1.73 LAB AMONO % Weber% 8.7 LAB AAMONO <0.87 k/uL Abs Weber 0.62 LAB AEOS % Eosin% 2.0 LAB AAEOS <0.46 k/uL Abs Eosin 0.14 LAB ABASO % Baso% 1.1 LAB AABASO <0.11 k/uL Abs Baso 0.08 LAB AUNRBC 0 /100 WBC NRBCs 0.0 LAB ABNRBC <0.01 k/uL Absolute nRBC <0.01 LAB DTYP DTYPE Auto Diff Performed By: #### CBCDIF, CMP, LIPNF, TSH #### [facility] [address] [place], [place] [address] COMP METABOLIC PANEL Collected: 01/22/2018 Status: F Source: [place] 8:34 AM [facility] REPOSITORY TYPE CODE TESTS RESULT OUT OF REFERENCE UNITS RANGE LAB TP 6.3-8.0 g/dL Protein, Total 7.2 LAB ALB 3.9-4.9 g/dL Albumin 4.4 LAB CA 8.5-10.2 mg/dL Calcium, Total 9.5 LAB TBIL 0.2-1.3 mg/dL Bilirubin, Total 0.3 LAB ALKP 32-117 U/L Alkaline Phosphatase 76 LAB AST 13-35 U/L AST 23 LAB GLU 74-99 mg/dL Glucose 99 Result Comment: The [place] Diabetes Association (ADA) provides guidance for cutoff values for fasting glucose and random glucose. The ADA defines fasting as no caloric intake for at least 8 hours. Fas ting plasma glucose results between 100 to 125 mg/dL indicate increased risk for diabetes (prediabetes). Fasting plasma glucose results greater than or equal to 126 mg/dL meet the criteria for diagnosis of diabetes. In the absence of unequivocal hyperglycemia, results should be confirmed by repeat testing. In a patient with classic symptoms of hyperglycemia or hyperglycemic crisis, random plasma glucose results greater than or equal to 200 mg/dL meet the criteria for diagnosis of diabetes. Reference: Standards of Medical Care in Diabetes 2016, [place] Diabetes Association. Diabetes Care. 2016.39(Suppl 1). LAB BUN 7-21 mg/dL BUN 15 LAB CRET 0.58-0.96 mg/dL Creatinine 0.94 LAB NA 136-144 mmol/L Sodium 141 LAB K 3.7-5.1 mmol/L Potassium 4.3 LAB CL 97-105 mmol/L Chloride 102 LAB CO2 22-30 mmol/L CO2 24 LAB AGAP 9-18 mmol/L Anion Gap 15 LAB ALT 7-38 U/L ALT 21 LAB GFRAA eGFR- Amer. >60 LAB GFRNAA . eGFR-All Other Races >60 Result Comment: eGFR (Estimated GFR) Units of measure: mL/min/1.73 meters squared eGFR is derived from the reexpressed MDRD Study equation using the following parameters: serum creatinine, age, gender and race. The creatinine assay has been calibrated to be traceable to IDMS. An eGFR <60 mL/min/1.73m2 for >3 months is consistent with chronic kidney disease. Refer to KDOQI guidelines for clinical interpretation. In patients with unstable renal function, e.g. those with acute kidney injury, the eGFR may not accurately reflect actual GFR. Performed By: #### CBCDIF, CMP, LIPNF, TSH #### [facility] [address] [place], [place] [address] LIPID PANEL, NONFAST Collected: 01/22/2018 Status: F Source: [place] 8:34 AM [facility] REPOSITORY TYPE CODE TESTS RESULT OUT OF REFERENCE UNITS RANGE LAB CHOLNF <200 mg/dL Total High Cholesterol NF 216 Result Comment: <200 mg/dL, Desirable 200-239 mg/dL, Borderline high >239 mg/dL, High LAB TRIGNF <150 mg/dL Triglycerides, NF High 267 Result Comment: <150 mg/dL, Normal 150-199 mg/dL, Borderline high 200-499 mg/dL, High >499 mg/dL, Very high LAB HDLNF >39 mg/dL HDL Cholesterol, NF 62 Result Comment: 40-59 mg/dL, Acceptable >59 mg/dL, High: Negative risk factor for coronary heart disease <40 mg/dL, Low: Positive risk factor for coronary heart disease LAB LDLNF <100 mg/dL LDL Cholesterol, High NF 101 Result Comment: <100 mg/dL, Optimal 100-129 mg/dL, Near optimal/above optimal 130-159 mg/dL, Borderline high 160-189 mg/dL, High >189 mg/dL, Very high Secondary prevention optimal LDL Cholesterol levels are recommended to be < 70 mg/dL LAB NOHDLN <130 mg/dL High Non HDL Chol, 154 NF Result Comment: <130 mg/dL, Optimal 130-159 mg/dL, Near optimal/above optimal 160-189 mg/dL, Borderline high 190-219 mg/dL, High >219 mg/dL, Very high Secondary prevention optimal non HDL Cholesterol levels are recommended to be < 100 mg/dL LAB VLDLNF <30 mg/dL VLDL Cholesterol, High NF 53 LAB TCHDLN <5.10 mg/dL T Chol/HDL Ratio NF 3.48 LAB LDLHDN <2.54 mg/dL LDL/HDL Ratio, NF 1.63 Result Comment: Reference: 1. National Cholesterol Education Program ATP III Guideline At-A-Glance Quick Desk Reference: National Heart, Lung, and Blood [place]. National Institutes of Health. 2001: NIH Publication No. 01-3305. 2. An International Atherosclerosis Society position paper: global recommendations for the management of dyslipidemia: executive summary, Atherosclerosis. 2014: 232(2):410-413. Performed By: #### CBCDIF, CMP, LIPNF, TSH #### [facility] [address] [place], [place] [address] TSH Collected: 01/22/2018 Status: F Source: [place] 8:34 AM [facility] REPOSITORY TYPE CODE TESTS RESULT OUT OF RANGE REFERENCE UNITS LAB TSH 0.400-5.500 uU/mL TSH 1.030 Performed By: #### CBCDIF, CMP, LIPNF, TSH #### [facility] [address] [place], [place] [address] PROGRESS Observed: 01/22/2018 Status: COMPLETED Source: [place] 7:46 AM [facility] RE[facility]IT[facility] HNO ID: [id number] Author: Adry (Kimberly) Older Service: (none) Author Type: Nurse Practitioner Type: Progress Notes Filed: 01/22/2018 8:09 AM Note Text: CC Patient presents with: Blood Pressure HPI Eva Valenzuela is a 57 year old female who presents to the office for blood pressure. Her visit today is for evaluation. Patient was at the dentist office yesterday to get a filling, blood pressure [id number]/102. Denies history of hypertension but does have a family history for this. Denies any significant medical problems. Does not have a PCP and hasn't been to the doctor in a long time. Exercise: denies regular aerobic exercise. Diet: Eats a lot of salt, snacks a lot and does not make the best food choices Caffeine: 1 liter iced tea daily Water intake: 4 to 5 12 ounce bottles Alcohol intake: occasional Smoker: Yes trying to quid Frequent NSAID use: No Decongestants: No Thyroid disorders? No Sleep disorders/snoring? No Home BP's: does not check BP's Symptoms referable to elevated blood pressure (headache, chest pain, palpitations, dyspnea, peripheral edema, fatigue, blurred vision): No Last 4 Encounter BP Readings: Date: BP: 01/22/2018 178/80 10/16/2011 116/84 08/16/2011 112/60 07/16/2011 118/68 Last 3 Encounter Wt Readings: Date: Wt: 01/22/2018 77.4 kg (170 lb 9.6 oz) 10/16/2011 67 kg (147 lb 9.6 oz) 08/16/2011 68.7 kg (151 lb 6.4 oz) REVIEW OF SYSTEMS General: no change in energy, no significant changes in weight but has steadily gained weight over the past few years Respiratory: no cough, no wheezing. Patient is getting over a cold, has been coughing a lot. Psych: No severe stressors or anxiety PAST MEDICAL HISTORY Diagnosis Date - Dysmenorrhea - Excessive or frequent menstruation Heavy periods - Irregular menstrual cycle Irregular periods PAST SURGICAL HISTORY Procedure Laterality Date - ARTHROTOMY,OPEN REPAIR MENISCUS Open knee reconstruction - LAPAROSCOPY, SURGICAL; WITH VAGINAL 2012 LAVH, adenomyosis, fibroids - LIGATE FALLOPIAN TUBE Tubal ligation - NOVASURE 08/06/2010 hysteroscopy/curettage - PAST SURGICAL HISTORY OF disc fusion ALLERGIES Patient has no known allergies. MEDICATIONS estradiol (ESTRACE) 0.01 % (0.1 mg/gram) vaginal cream Use 2 g vaginally twice a week. pea-sized amount FAMILY HISTORY Problem Relation Age of Onset - Hypertension Mother - Hypertension Sister Social History Substance Use Topics - Smoking status: Current Every Day Smoker Packs/day: 0.50 Years: 25.00 Types: Cigarettes - Smokeless tobacco: Never Used - Alcohol use Yes Comment: occasional PHYSICAL EXAM BP 178/80 Pulse 102 Temp 36.2 ?C (97.2 ?F) (Temporal Artery) Resp 14 Wt 77.4 kg (170 lb 9.6 oz) LMP 05/25/2011 SpO2 98% BMI 28.39 kg/m? General Appearance: well appearing, in no acute distress, alert Pysch: mood and affect broad and appropriate Skin: Skin color, texture, turgor normal for age; Eyes: conjunctiva pink and moist, no icterus, sclera white, non-injected Neck: Thyroid normal size and symmetric without palpable nodules, Neck supple, No adenopathy Lymph nodes: No supraclavicular lymphadenopathy Lungs: Lungs clear to auscultation. No wheezing, rhonchi, rales Heart: RRR without murmur, gallop, or rubs. No ectopy Abdomen: Abdomen soft, non-tender. Bowel sounds normal. No masses, organomegaly. No bruits. Ext: no edema in LE bilaterally, good distal pulses ASSESSMENT/PLAN: 1. Elevated blood pressure reading without diagnosis of hypertension - ICD9: 796.2, ICD10: R03.0 (primary diagnosis) Likely PreHypertension - Encouraged dietary sodium restriction/DASH diet. Discussed diet with plenty fruits, vegetables, lean meats and healthy fats/oils. Avoid processed foods, trans fats, vegetable oils and simple sugars. Watch portion sizes. - Recommended regular aerobic exercise. - Recommend home blood pressure monitoring, to bring results in on next visit - Discussed need and benefit for weight loss. - Recheck in 2 weeks, sooner if needed. Check labs for secondary causes: - CBC + DIFF - COMP METABOLIC PANEL - LIPID PANEL, NONFASTING - TSH BLD - URINALYSIS WITH MICROSCOPIC 2. Tobacco use - ICD9: 305.1, ICD10: Z72.0 - Cessation encouraged. - Physiologic and physical aspects of tobacco addiction as well as strategies for quitting were discussed. - Counseling was given focusing on the harmful effects of this addiction especially given the patient's medical condition(s) which will be worsened because of the chemicals in tobacco. - Counseling was given 3-4 minutes. - Recommended to called 1-800-QUIT NOW - Patient does not want Chantix but will consider Zyban. Will discuss further at follow-up appointment Prescription instructions reviewed with patient as applicable. Potential red flag symptoms discussed with the patient. Reviewed appropriate action plan to take if red flag symptoms occur. Patient agreeable to treatment plan Adry Mathew APRN.CNP CNOV Observed: 01/22/2018 Status: COMPLETED Source: [place] 7:40 AM [facility] REPOSITORY Office Visit (INTMWS) EVA VALENZUELA ([id number]) 1960 F Date Time Provider Department 01/22/18 7:40 AM ADRY MATHEW ([facility]) INTMWS During your visit today, we recorded the following information about you: Temperature Pulse Respiration Blood pressure 97.2 degrees 102/minute 14/minute 178/80 Weight 77.4 kg Adry Mathew APRN.CNP 01/22/2018 8:09 AM Signed CC Patient presents with: Blood Pressure HPI Eva Valenzuela is a 57 year old female who presents to the office for blood pressure. Her visit today is for evaluation. Patient was at the dentist office yesterday to get a filling, blood pressure kcp306/102. Denies history of hypertension but does have a family history for this. Denies any significant medical problems. Does not have a PCP and hasn't been to the doctor in a long time. Exercise: denies regular aerobic exercise. Diet: Eats a lot of salt, snacks a lot and does not make the best food choices Caffeine: 1 liter iced tea daily Water intake: 4 to 5 12 ounce bottles Alcohol intake: occasional Smoker: Yes trying to quid Frequent NSAID use: No Decongestants: No Thyroid disorders? No Sleep disorders/snoring? No Home BP's: does not check BP's Symptoms referable to elevated blood pressure (headache, chest pain, palpitations, dyspnea, peripheral edema, fatigue, blurred vision): No Last 4 Encounter BP Readings: Date: BP: 01/22/2018 178/80 10/16/2011 116/84 08/16/2011 112/60 07/16/2011 118/68 Last 3 Encounter Wt Readings: Date: Wt: 01/22/2018 77.4 kg (170 lb 9.6 oz) 10/16/2011 67 kg (147 lb 9.6 oz) 08/16/2011 68.7 kg (151 lb 6.4 oz) REVIEW OF SYSTEMS General: no change in energy, no significant changes in weight but has steadily gained weight over the past few years Respiratory: no cough, no wheezing. Patient is getting over a cold, has been coughing a lot. Psych: No severe stressors or anxiety PAST MEDICAL HISTORY Diagnosis Date - Dysmenorrhea - Excessive or frequent menstruation Heavy periods - Irregular menstrual cycle Irregular periods PAST SURGICAL HISTORY Procedure Laterality Date - ARTHROTOMY,OPEN REPAIR MENISCUS Open knee reconstruction - LAPAROSCOPY, SURGICAL; WITH VAGINAL 2012 LAVH, adenomyosis, fibroids - LIGATE FALLOPIAN TUBE Tubal ligation - NOVASURE 08/06/2010 hysteroscopy/curettage - PAST SURGICAL HISTORY OF disc fusion ALLERGIES Patient has no known allergies. MEDICATIONS estradiol (ESTRACE) 0.01 % (0.1 mg/gram) vaginal cream Use 2 g vaginally twice a week. pea-sized amount FAMILY HISTORY Problem Relation Age of Onset - Hypertension Mother - Hypertension Sister Social History Substance Use Topics - Smoking status: Current Every Day Smoker Packs/day: 0.50 Years: 25.00 Types: Cigarettes - Smokeless tobacco: Never Used - Alcohol use Yes Comment: occasional PHYSICAL EXAM BP 178/80 Pulse 102 Temp 36.2 ?C (97.2 ?F) (Temporal Artery) Resp 14 Wt 77.4 kg (170 lb 9.6 oz) LMP 05/25/2011 SpO2 98% BMI 28.39 kg/m? General Appearance: well appearing, in no acute distress, alert Pysch: mood and affect broad and appropriate Skin: Skin color, texture, turgor normal for age; Eyes: conjunctiva pink and moist, no icterus, sclera white, non-injected Neck: Thyroid normal size and symmetric without palpable nodules, Neck supple, No adenopathy Lymph nodes: No supraclavicular lymphadenopathy Lungs: Lungs clear to auscultation. No wheezing, rhonchi, rales Heart: RRR without murmur, gallop, or rubs. No ectopy Abdomen: Abdomen soft, non-tender. Bowel sounds normal. No masses, organomegaly. No bruits. Ext: no edema in LE bilaterally, good distal pulses ASSESSMENT/PLAN: 1. Elevated blood pressure reading without diagnosis of hypertension - ICD9: 796.2, ICD10: R03.0 (primary diagnosis) Likely PreHypertension - Encouraged dietary sodium restriction/DASH diet. Discussed diet with plenty fruits, vegetables, lean meats and healthy fats/oils. Avoid processed foods, trans fats, vegetable oils and simple sugars. Watch portion sizes. - Recommended regular aerobic exercise. - Recommend home blood pressure monitoring, to bring results in on next visit - Discussed need and benefit for weight loss. - Recheck in 2 weeks, sooner if needed. Check labs for secondary causes: - CBC + DIFF - COMP METABOLIC PANEL - LIPID PANEL, NONFASTING - TSH BLD - URINALYSIS WITH MICROSCOPIC 2. Tobacco use - ICD9: 305.1, ICD10: Z72.0 - Cessation encouraged. - Physiologic and physical aspects of tobacco addiction as well as strategies for quitting were discussed. - Counseling was given focusing on the harmful effects of this addiction especially given the patient's medical condition(s) which will be worsened because of the chemicals in tobacco. - Counseling was given 3-4 minutes. - Recommended to called 1-800-QUIT NOW - Patient does not want Chantix but will consider Zyban. Will discuss further at follow-up appointment Prescription instructions reviewed with patient as applicable. Potential red flag symptoms discussed with the patient. Reviewed appropriate action plan to take if red flag symptoms occur. Patient agreeable to treatment plan Adry Mathew APRN.DAMPER WORKER Referring Provider: SELF [[id number]] Allergies As of Date: 01/22/2018 (No Known Allergies) Date Reviewed: 01/22/2018 Reviewed by: Alba Curry Theatrical Agent - Fully Assessed Reason for Visit: Blood Pressure [15] Primary Visit Diagnosis:Elevated blood pressure reading without diagnosis of hypertension [R03.0] Other Visit Diagnosis:Tobacco use [Z72.0] Order(s):CBC + DIFF [SQCBCDIF] Order #: [id number] FUTURE COMP METABOLIC PANEL [SQCMP] Order #: [id number] FUTURE LIPID PANEL, NONFASTING [SQLIPNF] Order #: [id number] FUTURE TSH BLD [SQTSH] Order #: [id number] FUTURE URINALYSIS WITH MICROSCOPIC [SQUAWMIC] Order #: [id number] Problem List As Of Date 01/22/2018 Noted Resolved Excessive or frequent menstruation [N92.0] INVALID FOR*07/16/2011 Dysmenorrhea [N94.6] INVALID FOR*07/16/2011 Metrorrhagia [N92.1] INVALID FOR*07/16/2011 Fibroid [D25.9] INVALID FOR*07/16/2011 Elevated blood pressure reading without diagnos*INVALID FOR* Tobacco use [Z72.0] INVALID FOR* Medications Discontinued During This Encounter estradiol (ESTRACE) 0.01 % (0.1 mg/g* 1 Tu* 2 11/12/2012 01/22/2018 Route: VAGINAL Sig: Use 2 g vaginally twice a week. pea-sized amount Disc: Discontinued by Patient Encounter Status:Closed by ADRY MATHEW CNP on 01/22/18 ALLERGIES ALLERGIES DATE TYPE / CODE NAME / CODE REACTION SEVERITY SOURCE 04/15/2018 Drug No Known Unknown [facility] Allergy/416 Allergies/[id number] Hospital [id number](SNOM 0388(RXNORM) Repository ED CT) Drug NO KNOWN [facility] Class/43110 ALLERGIES [address] [place] 1003(SNOMED Repository CT) ENCOUNTERS ENCOUNTERS ADMIT/DISCHARGE ACCOUNT ADMITTING ENCOUNTER LOCATION SOURCE NUMBER CLASS 05/18/2018/05/18/19 [id number] Ambulatory [address] Repository 05/14/2018/05/18/19 [id number] Ambulatory [address] Repository 04/15/2018/04/15/20 [id number] Emergency [facility] [place] [facility] ing:ED Repository 03/05/2018/03/06/20 [id number] Ambulatory [address] Repository 02/05/2018/02/07/20 [id number] Ambulatory [address] Repository 01/23/2018/01/27/20 [id number] Ambulatory [address] Repository 01/23/2018/01/24/20 [id number] Ambulatory [address] Repository 01/22/2018/01/23/20 [id number] Ambulatory [address] Repository 01/22/2018/01/24/20 [id number] Ambulatory [address] Repository PAYERS PAYERS ENCOUNTER GUARANTOR PAYER SUBSCRIBER SOURCE 04/15/2018 MAXIMUS [id number] Primary EVA A [facility] [place] Insurance:AETNAYuliya CLINEDOB: [place], [place] Number: [id number] Hospital 88919Dqq: (301) [id number] Repository [phone] () Date:[id number] [place] [address]AF: 04/15/2018 Secondary NOT GIVENUNK [facility] Insurance:SELF PAY [facility] Number: Effective Repository Date:2018-04-15
== END 2018-04-15 19:20 | disposition home or self-care (01) ==
LOC: ED 17:55
PROVIDERS: Emergency Provider Emergency Medicine
DX: R07.89 Other chest pain (principal); I10 Essential (primary) hypertension; F17.210 Nicotine dependence, cigarettes, uncomplicated
CPT/HCPCS: 71045; 80048; 84484; 85025; 85610; 93005; 99285

== ENCOUNTER → 2019-02-18 12:07 | Outpatient (CLI) | payer OTHER, SELFPAY ==
[2019-02-18 15:34] LABS: Absolute Lymphocyte Count 1.39 X10^3/uL (0.83-4.51); Absolute Neutrophil Count 3.8 X10^3/uL (2.0-7.7); Basophil# 0.06 X10^3/uL; Eosinophils% 1.7 % (0-5); Hematocrit 43.6 % (37-47); Hemoglobin 14.2 g/dL (12.0-15.0); Lymphocyte # 1.39 X10^3/ul (4.0); Lymphocyte % 23.4 % (19-41); Mean Corp Hgb Conc 32.6 g/dL (32-36); Mean Corpuscular Volume 98.2 fL (81-99); Mean Platelet Vol. 10.2 fl (6.2-12.0); Monocyte# 0.59 X10^3/uL; Monocyte% 9.9 % (0-10); NRBC Flagged by Analyzer 0 % (0-5); Neutrophil # 3.77 X10^3/uL (2.7-7.7); Neutrophil % 63.3 % (47-70); Platelet Count 267 K/mm3 (150-450); Red Blood Count 4.44 M/mm3 (4.2-5.4)
[2019-02-18 16:00] LABS: Albumin, Serum 3.8 g/dL (3.2-5.0); BUN 15 mg/dL (7-18); Creatinine, Serum 0.94 mg/dL (0.55-1.02); EST Glomerular Filtration Rate 65 mL/min (>60); Est Glom Filt Rate - Afr Amer 79 mL/min (>60); Globulin 3.5 g/dL (2.2-4.2); Glucose 103 mg/dL (74-106); Protein, Total 7.3 g/dL (6.4-8.2)
[2019-02-18 16:01] LABS: ALB/GLOB Ratio 1.1 RATIO (0.9-2.4); AST(SGOT) 29 U/L (15-37); Alanine Aminotransfer ALT/SGPT 46 U/L (13-56); Alkaline Phosphatase 96 U/L (45-117); Anion Gap 8 (5-15); Calcium,Total 8.9 mg/dL (8.5-10.1); Chloride 105 mmol/L (98-107); Potassium 3.8 mmol/L (3.5-5.1); Sodium Level 137 mmol/L (136-145)
== END ==
PROVIDERS: Family Provider Family Medicine; PCP Family Medicine; Visit Provider Family Medicine
DX: R53.83 Other fatigue (principal); R10.11 Right upper quadrant pain; R63.5 Abnormal weight gain; K21.9 Gastro-esophageal reflux disease without esophagitis
CPT/HCPCS: 36415; 80053; 84443; 85025

== ENCOUNTER → 2019-03-03 09:08 | Outpatient (CLI) | payer OTHER, SELFPAY ==
--- NOTE | 2019-03-03 09:22 | US_ITS ---
STUDY: ABDOMINAL ULTRASOUND - RIGHT UPPER QUADRANT REASON FOR VISIT: Female, 58 years old epigastric pain, bloating TECHNIQUE: Ultrasound evaluation of the right upper quadrant was performed with real-time and static lópez-scale imaging. TECHNICAL QUALITY: Adequate. COMPARISON: None. FINDINGS: Liver: The liver measures 20.5 cm. There is increased echogenicity consistent with fatty infiltration. The bile ducts are within normal limits. There is hepatic color flow. The direction of portal flow is hepatopetal. There is no demonstrated mass lesion. Gallbladder: Normal distended gallbladder. The gallbladder wall measures 3 mm. There is a negative sonographic Hyatt's sign. There is no pericholecystic fluid. There are no gallstones. Common Bile Duct (C.B.D.): The common bile duct measures 4 mm. Pancreas: Normal size of the head, body and tail of the pancreas. There is normal echogenicity of the pancreas. There is no demonstrated pancreatic mass or cyst. Right Kidney: Normal size of the right kidney. The right kidney measures 10.1 x 4.9 x 4 point cm. Normal renal cortex. The right cortex measures 1.5 cm. There is no demonstrated renal mass or cyst. There is no right hydronephrosis. US/Abdomen Limited IMPRESSION: Hepatomegaly with diffuse fatty infiltration, no discrete lesion Electronically Signed: Magdy Benitez MD at 10:17 EDT , Service support ,
== END ==
PROVIDERS: Family Provider Family Medicine; PCP Family Medicine; Referring Provider Family Medicine; Visit Provider Family Medicine
DX: R10.11 Right upper quadrant pain (principal)
CPT/HCPCS: 76705

== ENCOUNTER → 2019-06-09 10:30 | Outpatient (CLI) | payer OTHER, SELFPAY ==
--- NOTE | 2019-06-09 10:33 | NM_ITS ---
CLINICAL: 59-year-old female with reported history of right upper quadrant abdominal pain. RADIONUCLIDE HEPATOBILIARY SCINTIGRAPHY COMPARISON: Abdominal ultrasound report 03/03/2019 FINDINGS: Following the intravenous administration of 5.6 mCi of 99m Tc Mebrofenin, hepatobiliary images reveal: 1. Relatively prompt and homogeneous radiopharmaceutical concentration is noted by a normal sized liver. No parenchymal defects are identified. 2. Gallbladder activity is identified at 15 minutes post radiopharmaceutical administration. 3. Small intestinal tract is observed at 20 minutes following tracer injection. 4. Washout of the radiopharmaceutical by the hepatic parenchyma appears qualitatively normal. Cholecystokinin (0.02 ug/kg) was administered intravenously over a 30-minute period. The post CCK gallbladder ejection fraction calculated at 20 minutes following Cholecystokinin administration was noted to be 41.0 % (normal greater than 35%). During 30 minutes of post CCK imaging, there is no scintigraphic evidence of reflux of the radiotracer into the common hepatic duct or refilling of the gallbladder. NM/Hepatobilliary Img w/Pharm Int IMPRESSION: 1. NORMAL 99m Tc Mebrofenin hepatobiliary imaging examination with Cholecystokinin. A. A gallbladder ejection fraction calculated to be greater than 35% following the administration of Cholecystokinin makes the probability of functional hepatobiliary disease (gallbladder and/or sphincter of Oddi dyskinesia) and/or organic hepatobiliary disease (chronic acalculous cholecystitis and/or cystic duct syndrome) to be low. (Ryan Pang et al, Journal of Nuclear Medicine 32:1695, 1991). Electronically Signed: Christiano Olivas DO at 23:46 EST Tel , Service support ,
== END ==
PROVIDERS: PCP Family Medicine; Referring Provider Family Medicine; Visit Provider Family Medicine
DX: R10.11 Right upper quadrant pain (principal)
CPT/HCPCS: 78227; A9537; J2805

== ENCOUNTER → 2019-06-29 08:19 | Outpatient (CLI) | payer OTHER, SELFPAY ==
--- NOTE | 2019-06-29 08:21 | CT_ITS ---
STUDY: CT ABDOMEN AND PELVIS WITHOUT CONTRAST REASON FOR EXAM: Female, 59 years old. CHRONIC ABD PAIN-WORSE AFTER EATING, HTN, SURG-HYSTER RADIATION DOSAGE (If Supplied By Facility): CTDIvol = ( 11.68 ) mGy, DLP = ( 745.65 ) mGycm COMPARISON: Previous hepatobiliary scan obtained on 02/04/2019 TECHNIQUE: A CT scan of the abdomen and pelvis was performed without IV contrast contrast administration. Oral contrast was also administered. Coronal and sagittal reconstruction images were reviewed. This exam was performed according to our departmental dose-optimization program, which includes automated exposure control, adjustment of the mA and/or kV according to patient size and/or use of iterative reconstruction technique. FINDINGS: The lung bases and the base of the heart are normal. There is diffuse fatty infiltration of the liver. No other hepatic masses or lesions are seen.The spleen is normal.The adrenal glands are normal.The head, body, and tail of the pancreas are normal. The right and left kidneys were examined and appear to be normal. Both ureters appear to be normal, and no obstructive uropathy is identified. The abdominal aortal is normal along its course and distribution. No paraortic lymphadenopathy is seen. No abdominal masses or lesions are seen. The CT scan of the pelvis was then reviewed. The common iliac vessels, external iliac vessels, and common femoral vessels are normal along their course and distribution No pelvis masses or lesions are seen. The appendix is normal. No pericecal inflammatory reaction is seen. Bone scanning windows of the lumbar spine and pelvis were reviewed in the coronal and sagittal planes and show unilateral spondylitic defect of L5 on the left. No spondylolisthesis is identified.. CT/Abdomen/Pelvis without Cont IMPRESSION: 1. Diffuse fatty infiltration of the liver. 2. Unilateral spondylitic defect of L5 on the left. Electronically Signed: Avi Garcia, at 9:09 EST Tel , Service support ,
== END ==
PROVIDERS: PCP Family Medicine; Referring Provider Family Medicine; Visit Provider Family Medicine
DX: R10.11 Right upper quadrant pain (principal)
CPT/HCPCS: 74176

== ENCOUNTER → 2020-02-23 14:38 | Outpatient (CLI) | payer OTHER, SELFPAY ==
[2020-02-23 18:43] LABS: CRP 3.82 mg/L (0.0-3.0)
[2020-02-25 16:20] LABS: Endomysial Antibody IgA Negative (Negative); Immunoglobulin A 229 mg/dL (87-352); t-Transglutaminase IgA <2 U/mL (0-3)
== END ==
PROVIDERS: PCP Family Medicine; Referring Provider Internal Medicine Gastroenterology; Visit Provider Internal Medicine Gastroenterology
DX: R19.7 Diarrhea, unspecified (principal); R10.9 Unspecified abdominal pain
CPT/HCPCS: 36415; 82784; 83516; 86140; 86255

== ENCOUNTER → 2021-09-18 | Outpatient (CLI) | payer OTHER, SELFPAY ==
--- NOTE | 2021-09-18 07:17 | BI_ITS ---
MAMMOGRAPHY - BILATERAL SCREENING REASON FOR EXAM: Female, 61 years old. Routine annual screening examination. PERTINENT HISTORY: Non-contributory. TECHNIQUE: Digital bilateral breast roque (3D mammographic acquisition) in the CC and MLO projections. 2-D mediolateral oblique (MLO) and craniocaudad (CC) views of both breasts were obtained. CAD: Full Field Digital Mammography with Computer Added Detection was performed. COMPARISON: Comparison is made with prior abdomen examination dated 05/18/2018. FINDINGS: Breast Composition: There are scattered areas of fibroglandular density. There are no dominant masses or suspicious calcifications. Stable small benign-appearing bilateral axillary lymph nodes. No other significant abnormalities are identified. There has been no significant change since the prior study. BI/SCRN MAMM (CAD)W/ROQUE BILAT IMPRESSION: Stable bilateral screening mammogram. Yearly follow-up mammogram recommended. (A) ASSESSMENT CATEGORY: BIRADS Category 2: Benign. A letter regarding these results will be sent to the patient by the facility within 30 days. Approximately 10% of breast cancers are not detected by mammography. A normal mammogram should not delay biopsy of a clinically suspicious abnormality. [id number] Electronically Signed: Shun Davison MD at 8:49 EDT ,
== END | disposition home or self-care (01) ==
LOC: OPBI 07:14
PROVIDERS: PCP Family Medicine; Visit Provider Family Medicine
DX: Z12.31 Encounter for screening mammogram for malignant neoplasm of breast (principal)
CPT/HCPCS: 77063; 77067

== ENCOUNTER → 2022-12-19 | Outpatient (CLI) | payer OTHER, SELFPAY ==
[2022-12-19 10:45] LABS: Absolute Lymphocyte Count 1.44 X10^3/uL (0.83-4.51); Absolute Neutrophil Count 3.1 X10^3/uL (2.0-7.7); Basophil# 0.08 X10^3/uL; Basophil% 1.5 % (0-1); Eosinophil# 0.16 X10^3/uL; Hematocrit 44.8 % (37-47); Hemoglobin 14.7 g/dL (12.0-15.0); Lymphocyte # 1.44 X10^3/ul (0.83-4.51); Lymphocyte % 27.3 % (19-41); Mean Corp Hgb Conc 32.8 g/dL (32-36); Mean Corpuscular Hgb 33.8 pg (27.0-32.0); Mean Platelet Vol. 10.1 fl (6.2-12.0); Monocyte# 0.46 X10^3/uL; Monocyte% 8.7 % (0-10); NRBC Flagged by Analyzer 0 % (0-5); Neutrophil # 3.08 X10^3/uL (2.7-7.7); Neutrophil % 58.6 % (47-70); Platelet Count 290 K/mm3 (150-450); RBC Distribution Width SD 49.7 fl (35.1-43.9); Red Blood Count 4.35 M/mm3 (4.2-5.4); White Blood Count 5.3 K/mm3 (4.4-11.0)
[2022-12-19 11:15] LABS: ALB/GLOB Ratio 0.9 RATIO (0.9-2.4); AST(SGOT) 51 U/L (15-37); Alanine Aminotransfer ALT/SGPT 88 U/L (13-56); Albumin, Serum 3.4 g/dL (3.2-5.0); Alkaline Phosphatase 102 U/L (45-117); Anion Gap 6 (5-15); BUN 13 mg/dL (7-18); BUN/Creat Ratio 13.8 RATIO (10-20); Calcium,Total 8.9 mg/dL (8.5-10.1); Chloride 108 mmol/L (98-107); Cholesterol 270 mg/dL (200); Creatinine, Serum 0.94 mg/dL (0.55-1.02); EST Glomerular Filtration Rate 64 mL/min (>60); Est Glom Filt Rate - Afr Amer 78 mL/min (>60); Globulin 3.6 g/dL (2.2-4.2); Glucose 124 mg/dL (74-106); High Density Lipoprotein 45 mg/dL; Potassium 4.5 mmol/L (3.5-5.1); Sodium Level 139 mmol/L (136-145); Triglycerides 744 mg/dL
== END | disposition home or self-care (01) ==
LOC: MTLAB 08:36
PROVIDERS: PCP Family Medicine; Visit Provider Family Medicine
DX: Z00.00 Encounter for general adult medical examination without abnormal findings (principal); I10 Essential (primary) hypertension
CPT/HCPCS: 36415; 80053; 80061; 85025

== ENCOUNTER → 2022-12-31 | Outpatient (CLI) | payer OTHER, SELFPAY ==
--- NOTE | 2022-12-31 13:29 | BI_ITS ---
MAMMOGRAPHY - BILATERAL SCREENING 3-D TOMOSYNTHESIS REASON FOR EXAM: Female, 62 years old. Routine screening PERTINENT HISTORY: No significant family history. TECHNIQUE: 2-D mammograms and 3-D Tomosynthesis of the breast (s) were performed. CAD was performed. COMPARISON: 09/18/2021 FINDINGS: The breast composition is almost entirely fat. Scattered benign calcifications are seen. No dense spiculated masses or suspicious microcalcifications are identified. No architectural distortion is identified. There is no skin thickening or retraction. There has been no significant change since the prior study. BI/SCRN MAMM (CAD)W/ROQUE BILAT IMPRESSION: No mammographic signs of malignancy. Routine yearly mammograms recommended. ASSESSMENT CATEGORY: BIRADS Category 1: Negative. A letter regarding these results will be sent to the patient by the facility within 30 days. FOLLOW UP RECOMMENDATION: Yearly follow up mammogram recommended. (A) Approximately 10% of breast cancers are not detected by mammography. A normal mammogram should not delay biopsy of a clinically suspicious abnormality. Electronically Signed: Magdy Benitez MD at 7:36 EDT ,
== END | disposition home or self-care (01) ==
LOC: OPBI 13:28
PROVIDERS: PCP Family Medicine; Referring Provider Family Medicine; Visit Provider Family Medicine
DX: Z12.31 Encounter for screening mammogram for malignant neoplasm of breast (principal)
CPT/HCPCS: 77063; 77067

== ENCOUNTER → 2023-02-25 | Outpatient (CLI) | payer OTHER, SELFPAY ==
[2023-02-25 12:56] LABS: AST(SGOT) 26 U/L (15-37); Alanine Aminotransfer ALT/SGPT 52 U/L (13-56); Albumin, Serum 3.5 g/dL (3.2-5.0); Alkaline Phosphatase 95 U/L (45-117); Bilirubin, Direct 0.14 mg/dL (0.00-0.30); Cholesterol 203 mg/dL (200); Ferritin 132 ng/mL (8-252); Globulin 3.5 g/dL (2.2-4.2); High Density Lipoprotein 65 mg/dL; Triglycerides 191 mg/dL; Very Low Density Lipoprotein 38 mg/dL (5-40)
[2023-02-25 13:32] LABS: Hepatitis B Surface Antigen Non-Reactive (Nonreactive); Hepatitis C Antibody Non-Reactive (Nonreactive); Vitamin B12 202 pg/mL (211-911)
== END | disposition home or self-care (01) ==
PROVIDERS: PCP Family Medicine; Referring Provider Family Medicine; Visit Provider Family Medicine
DX: E78.1 Pure hyperglyceridemia (principal); K76.0 Fatty (change of) liver, not elsewhere classified; R74.8 Abnormal levels of other serum enzymes; D53.1 Other megaloblastic anemias, not elsewhere classified
CPT/HCPCS: 36415; 80061; 80076; 82607; 82728; 86803; 87340